=== PATIENT | female | born 1965 | race African-American/Black ===

== ENCOUNTER 2017-11-28 22:20 | Inpatient (IN) | payer OTHER ==
[~2017-11-28] VITALS: Ht 175.3 cm; Wt 72.6 kg
[~2017-11-28 22:20] MED LIST: ATOR20TA PO; FLOR250 PO; NITR100C7 PO
[2017-11-28 22:22] VITALS: BP 115/71
--- NOTE | 2017-11-28 22:22 | NUR ---
PT BIBA TO ER BED 10
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
[2017-11-28] MEDS ORDERED: NACL 0.9% 1,000 ML IV ONE (22:40)
[2017-11-28] MEDS ORDERED: KETOROLAC 30 MG/ML VIAL IVP ONE (22:40)
[2017-11-28 23:19] LABS: APPEARANCE,URINE HAZY (CLEAR); BILIRUBIN,URINE NEGATIVE (NEGATIVE); BLOOD, URINE 3+ (NEGATIVE); COLOR,URINE YELLOW (YELLOW); LEUKOCYTE ESTERASE ,URINE NEGATIVE (NEGATIVE); NITRITE, URINE NEGATIVE (NEGATIVE); UGLUCOSE NEGATIVE (NEGATIVE)
[2017-11-28 23:29] LABS: BARBITURATE, URINE NEG. ng/ml (NEG <=200); BENZODIAZEPINE, URINE NEG. ng/mL (NEG <=200); CANNABINOID, URINE POS. ng/mL (NEG <=50); COCAINE, URINE NEG. ng/mL (NEG <=300); OPIATE, URINE POS. ng/mL (NEG <=2000); PHENCYCLIDINE SCREEN,URINE NEG. ng/mL (NEG <=25)
[2017-11-28 23:39] LABS: BASOPHILS # (AUTO) 0.1 K/uL (0.00-0.22); BASOPHILS % (AUTO) 0.5 % (0.0-2.0); EOSINOPHILS # (AUTO) 0.1 K/uL (0-0.4); EOSINOPHILS % (AUTO) 0.3 % (0.0-4.0); HEMATOCRIT 31.4 % (36-48); HEMOGLOBIN 9.9 g/dL (12.0-16.0); LYMPHOCYTES # (AUTO) 1.2 K/uL (2.5-16.5); LYMPHOCYTES % (AUTO) 7.3 % (20.5-51.1); MEAN CORPUSCULAR HEMOGLOBIN 25 pg (27-31); MEAN CORPUSCULAR HGB CONC 31 g/dL (33-37); MEAN CORPUSCULAR VOLUME 78.4 fL (80-94); MONOCYTES # (AUTO) 1.5 K/uL (0.8-1.0); MONOCYTES % (AUTO) 9.3 % (1.7-9.3); NEUTROPHILS # (AUTO) 13.2 K/uL (1.8-7.7); PLATELET COUNT (AUTO) 445 K/uL (140-450); RED CELL DISTRIBUTION WIDTH 16.6 % (11.6-13.7)
[2017-11-28 23:43] LABS: RBC,URINE 11-20 (MOD) /HPF (0-5); WBC,URINE 0-5 (RARE) /HPF (0-5)
[2017-11-29 00:02] LABS: ALBUMIN 1.8 g/dL (3.4-5.0); CARBON DIOXIDE 31.8 mmol/L (21-32); CREATININE 0.8 mg/dL (0.6-1.3); TOTAL BILIRUBIN 0.5 mg/dL (0.0-1.0)
[2017-11-29 00:03] LABS: ANION GAP 6.1 (8-16)
[2017-11-29 00:04] LABS: POTASSIUM 2.9 mmol/L (3.5-5.1)
[2017-11-29] MEDS ORDERED: POTASSIUM CHLORIDE 20% 40 MEQ/15 ML UDC PO ONE (00:05)
[2017-11-29 00:10] LABS: NEUTROPHILS % (AUTO) 82.6 % (42.2-75.2)
[2017-11-29] MEDS ORDERED: NACL 0.9% 1,000 ML IV ONE (00:10)
[2017-11-29] MEDS ORDERED: PIPERACILLIN/TAZOBACTAM 3.375 GM in DEXTROSE 5% 50 ML IV ONE (00:15)
[2017-11-29] MEDS ORDERED: VANCOMYCIN 1,000 MG in DEXTROSE 5% 250 ML IV ONE (00:15)
[2017-11-29] MEDS ORDERED: PIPERACILLIN/TAZOBACTAM 3.375 GM VIAL IV ONE ×2 (00:26→05:55)
[2017-11-29] MEDS ORDERED: VANCOMYCIN 1,000 MG VIAL ONE (00:26)
[2017-11-29] MEDS ORDERED: DEXTROSE 50% 50 ML SYR IVP PRN (01:50)
[2017-11-29] MEDS ORDERED: ONDANSETRON 4 MG/2 ML VIAL IM/IVP PRN (01:50)
[2017-11-29] MEDS ORDERED: DOCUSATE SODIUM 100 MG GELCAP PO PRN (01:50)
[2017-11-29] MEDS ORDERED: KCL 20 MEQ/WATER INJ PREMIX 100 ML IV SCH (02:30)
--- NOTE | 2017-11-29 03:20 | NUR ---
PT ARRIVED ON UNIT VIA GURNEY ASSISTED BY ER NURSE. PT IN STABLE CONDITION. PT BEING ADMITTED WITH DX OF POSSIBLE SEPSIS. PT IS A/O X3. PT IS DROWSY. PT ON RA. VS ARE STABLE. IV ACCESS IN L AC 20G WITH ORDERED VANCO INFUSING. IV IS PATENT AND INTACT. PT HAS LACERATIONS TO BILATERAL BUTTOCKS. PT HAS SPLINT ON R FOOT. MRSA SWAB DONE. WOUND CULTURES DONE. FALL RISK PRECAUTIONS IN PLACE, WRIST BAND, SOCKS, SIGN ON DOOR AND GOWN. ALLERGY WRISTBAND APPLIED. BED LOCKED, LOW POSITION AND SIDE RAILS UP X2. BOARD UPDATED. WILL CONTINUE TO MONITOR PT.
--- NOTE | 2017-11-29 03:24 | NUR ---
Pt report given to CARINA MAURICIO. Transfer of care at this time.
[2017-11-29 03:56] LABS: PROTHROMBIN TIME 13.9 secs (10.8-13.4)
[2017-11-29 04:00] VITALS: BP 123/77
[2017-11-29 04:05] LABS: FREE T4 (FREE THYROXINE) 1.55 ng/dL (0.76-1.46); MAGNESIUM 2.4 mg/dL (1.8-2.4); PHOSPHORUS 2.9 mg/dL (2.5-4.9); THYROID STIMULATING HORMONE 0.81 uIU/mL (0.34-3.74)
--- NOTE | 2017-11-29 04:13 | NUR ---
LAB CALLED WITH LACTIC ACID VALUE, 2.1, TRENDING DOWNWARD.
[2017-11-29] MEDS ORDERED: PIPERACILLIN/TAZOBACTAM 3.375 GM in DEXTROSE 5% 50 ML IV SCH (05:00)
[2017-11-29] MEDS: BLOOD GLUCOSE MONITORING 1 DEV DEV FS SCH ×4 (05:49→20:23)
--- NOTE | 2017-11-29 05:49 | NUR ---
BS CHECKED, 108. PER MD ORDERS NO COVERAGE NEEDED. WILL CONTINUE TO MONITOR PT.
[2017-11-29] MEDS: NACL 0.9% 1,000 ML IV SCH ×3 (05:55→23:54)
--- NOTE | 2017-11-29 07:10 | NUR ---
PATIENT HAS BEEN SCREENED AND CATEGORIZED HIGH RISK. PATIENT WILL BE SEEN WITHIN 1-2 DAYS OF ADMISSION. 11/30- [address], [facility]
[2017-11-29 07:11] LABS: BASOPHILS % (AUTO) 0.2 % (0.0-2.0); EOSINOPHILS # (AUTO) 0.1 K/uL (0-0.4); EOSINOPHILS % (AUTO) 0.9 % (0.0-4.0); HEMATOCRIT 26.9 % (36-48); HEMOGLOBIN 8.5 g/dL (12.0-16.0); LYMPHOCYTES # (AUTO) 1.2 K/uL (2.5-16.5); LYMPHOCYTES % (AUTO) 8.7 % (20.5-51.1); MEAN CORPUSCULAR HEMOGLOBIN 25 pg (27-31); MEAN CORPUSCULAR HGB CONC 32 g/dL (33-37); MEAN CORPUSCULAR VOLUME 77.7 fL (80-94); MONOCYTES # (AUTO) 1.3 K/uL (0.8-1.0); NEUTROPHILS # (AUTO) 10.7 K/uL (1.8-7.7); NEUTROPHILS % (AUTO) 80.2 % (42.2-75.2); PLATELET COUNT (AUTO) 345 K/uL (140-450); RED BLOOD CELL COUNT(AUTO) 3.45 MIL/uL (4.20-5.40); RED CELL DISTRIBUTION WIDTH 16.5 % (11.6-13.7); WHITE BLOOD COUNT (AUTO) 13.4 K/uL (4.8-10.8)
--- NOTE | 2017-11-29 07:15 | NUR ---
ENDORSED PT TO DAY SHIFT NURSE FOR CONTINUITY OF CARE. PT IN STABLE CONDITION.
--- NOTE | 2017-11-29 07:20 | NUR ---
RECEIVED PT ON BED ASLEEP, AROUSABLE BUT DROWSY, ORIENTED X4. NO SOB NOTED. NO C/O PAIN AT THIS TIME. IV TO LT AC PATENT AND INTACT. CHEST CLEAR DIMINISHED AIR ENTRY TO THE BASES ABDOMEN SOFT, BOWEL SOUNDS PRESENT. NO EDEMA NOTED. SOFT CAST ON RT LOWER EXTREMITY NOTED DRY AND IN PLACE. BED ON LOW POSITION, BED ALARM ON. INSTRUCTED PT TO CALL FOR ASSISTANCE, CALL LIGHT WITHIN REACH, PT VERBALIZED UNDERSTANDING.
[2017-11-29 07:26] LABS: ANION GAP 5.6 (8-16); CARBON DIOXIDE 28.9 mmol/L (21-32); CREATININE 0.6 mg/dL (0.6-1.3); POTASSIUM 3.5 mmol/L (3.5-5.1)
[2017-11-29 07:35] LABS: CHOL/HDL RATIO 3.2 (1-4.5); PHOSPHORUS 2.4 mg/dL (2.5-4.9)
[2017-11-29 08:00] VITALS: BP 143/92
[2017-11-29] MEDS: KETOROLAC 15 MG/ML VIAL IVP PRN ×2 (09:23→16:58)
[2017-11-29] MEDS: LACTOBACILLUS RHAMNOSUS GG 1 EACH CAP PO SCH (09:26)
--- NOTE | 2017-11-29 11:00 | NUR ---
PT HAD BMX1, SOFT, BROWN STOOLS NOTED IN MODERATE AMOUNTS. STOOL SPECIMEN COLLECTED AND SENT TO LAB.
--- NOTE | 2017-11-29 11:33 | NUR ---
ABRASIONS TO BILATERAL BUTTOCKS NOTED, IRREGULAR IN SIZE, MINIMAL SANGUINOUS DRAINAGE NOTED. CLEANSE WITH NORMAL SALINE, PAT DRY AND COVERED WITH COMPOSITE DRESSING. AWAITING FOR WOUND CARE CONSULT. DR. CRUMP NOTIFIED.
[2017-11-29 12:00] VITALS: BP 125/78
--- NOTE | 2017-11-29 12:54 | NUR ---
11/29/17 RD INITIAL ASSESSMENT COMPLETED PLEASE REFER TO NUTRITION ASSESSMENT UNDER CARE ACTIVITY FOR ESTIMATED NEEDS. RECOMMENDATIONS: 1. CCHO DIET TOLERATED. 2. APPRECIATE FOOD PREFERENCES ABLE. 3. RD WILL FOLLOW UP IN 2-3 DAYS; HIGH RISK. JEFFRY MONTANO RD, [facility]
[2017-11-29] MEDS: HYDROcodone/APAP 5/325 MG 1 TAB TAB PO PRN (13:50)
[2017-11-29] MEDS: PIPER/TAZO 3.375GM/D5W PREMIX 50 ML IV SCH ×2 (13:51→20:37)
[2017-11-29] MEDS ORDERED: Z-GUARD PASTE TP SCH (14:00)
--- NOTE | 2017-11-29 14:15 | NUR ---
PT RESTING. NO SOB NOTED. NO COMPLAINTS MADE.
[2017-11-29] MEDS ORDERED: SODIUM PHOS / POTASSIUM PHOS 1 PKT PDR PO SCH (15:30)
[2017-11-29 16:00] VITALS: BP 141/72
--- NOTE | 2017-11-29 16:20 | NUR ---
PT HAD ANOTHER BM, SOFT, BROWN STOOLS NOTED IN MODERATE AMOUNTS.
--- NOTE | 2017-11-29 17:30 | NUR ---
PT AMBULATING IN THE HALLWAY WITH STANDBY ASSIST. ACTIVITY TOLERATED WELL. Addendum: 11/29/17 at 1907 by Cecilia Hutchison RN DISREGARD ABOVE NOTES, WRONG PT.
--- NOTE | 2017-11-29 19:04 | NUR ---
PT TALKING TO GIRLFRIEND AT THE BEDSIDE. NO COMPLAINTS MADE. WILL ENDORSE TO NEXT SHIFT NURSE FOR CONTINUITY OF CARE. Addendum: 11/29/17 at 1907 by Cecilia Hutchison RN DISREGARD ABOVE NOTES, WRONG PT.
--- NOTE | 2017-11-29 19:05 | NUR ---
PT RESTING. NO SOB NOTED. NO SIGNS OF PAIN. WILL ENDORSE TO NEXT SHIFT NURSE FOR CONTINUITY OF CARE.
--- NOTE | 2017-11-29 19:05 | NUR ---
RECEIVED REPORT FROM MAICO MAURICIO DAYSHIFT NURSE AT BEDSIDE, PT IN STABLE CONDITION.
[2017-11-29 20:00] VITALS: BP 136/73
--- NOTE | 2017-11-29 20:00 | NUR ---
PT ASLEEP IN BED, BUT AROUSABLE TO NAME SHE IS AO X 2. PT IV SITE IS A 20 G ON LEFT AC RUNNING N/S AT 90MLS/HR . BED LOW WITH SIDE RAILS UP X 2 ALL FALLS PRECAUTIONS IN PLACE. PT HAS NO S/S OF PAIN OR DISTRESS NOTED.
[2017-11-29] MEDS: ATORVASTATIN 20 MG TAB PO SCH (20:23)
--- NOTE | 2017-11-29 21:30 | NUR ---
PT TURNED AND CHANGED BUT SHE REFUSED TO BE REPOSITIONED ON HER SIDE, PT PREFERS TO LAY DOWN ON HER BACK WITH HOB UP 25%. ZOSYN GIVEN ORDERED NO ADVERSE EFFECTS OF MEDS NOTED.
[2017-11-30] VITALS: BP 128/76
[2017-11-30] MEDS: KETOROLAC 15 MG/ML VIAL IVP PRN ×3 (00:27→17:45)
--- NOTE | 2017-11-30 00:45 | NUR ---
PT C/O GENERAL BODY PAIN 06/28 REQUESTED AND GIVEN TORADOL IVP.
--- NOTE | 2017-11-30 02:00 | NUR ---
PT CHANGED AND TURNED BUT SHE REFUSED TO BE REPOSITIONED OFF HER BUTTOCKS. WOUND CARE PROVIDED NO DRAINAGE OR ODOR NOTED, Z GUARD CREAM APPLIED TO WOUND SITE. NEW IV SITE TO RIGHT WRIST 24 GAUGE PROVIDED DUE TO IV CONSTANTLY BEEPING AND PT UNABLE TO KEEP FROM BENDING HER ARM.
[2017-11-30] MEDS ORDERED: VANCOMYCIN PER PHARMACY MC PRN (02:05)
[2017-11-30] MEDS ORDERED: VANCOMYCIN 1GM/DEXT 5% PREMIX 200 ML IV SCH (03:00)
[2017-11-30] MEDS ORDERED: VANCOMYCIN 1,000 MG VIAL ONE (03:37)
[2017-11-30] MEDS: HYDROcodone/APAP 5/325 MG 1 TAB TAB PO PRN ×4 (03:39→21:47)
--- NOTE | 2017-11-30 03:59 | NUR ---
PT C/O OF 5/10 PAIN IN NECK AND BODY GIVEN NORCO 5/325MG PO/PRN. V/S FOLLOWS T 98.4 P 57 R 20 B/P 133/79 02 98% W R/A. ALL FALLS PRECAUTIONS IN PLACE. WILL MONITOR EFFECT OF PRN MEDICATION.
[2017-11-30 04:00] VITALS: BP 130/80
[2017-11-30] MEDS: BLOOD GLUCOSE MONITORING 1 DEV DEV FS SCH ×4 (05:46→21:45)
[2017-11-30 06:38] LABS: BASOPHILS % (AUTO) 0.3 % (0.0-2.0); EOSINOPHILS # (AUTO) 0.1 K/uL (0-0.4); EOSINOPHILS % (AUTO) 0.9 % (0.0-4.0); HEMATOCRIT 26.6 % (36-48); HEMOGLOBIN 8.6 g/dL (12.0-16.0); LYMPHOCYTES % (AUTO) 7.9 % (20.5-51.1); MEAN CORPUSCULAR HEMOGLOBIN 25 pg (27-31); MEAN CORPUSCULAR HGB CONC 32 g/dL (33-37); MEAN CORPUSCULAR VOLUME 76.8 fL (80-94); MONOCYTES # (AUTO) 0.8 K/uL (0.8-1.0); MONOCYTES % (AUTO) 6.6 % (1.7-9.3); NEUTROPHILS # (AUTO) 10.5 K/uL (1.8-7.7); NEUTROPHILS % (AUTO) 84.3 % (42.2-75.2); PLATELET COUNT (AUTO) 313 K/uL (140-450); RED BLOOD CELL COUNT(AUTO) 3.46 MIL/uL (4.20-5.40); RED CELL DISTRIBUTION WIDTH 16.6 % (11.6-13.7); WHITE BLOOD COUNT (AUTO) 12.5 K/uL (4.8-10.8)
[2017-11-30 07:04] LABS: MAGNESIUM 1.7 mg/dL (1.8-2.4); PHOSPHORUS 1.8 mg/dL (2.5-4.9)
[2017-11-30 07:08] LABS: ANION GAP 5.5 (8-16); CARBON DIOXIDE 29.2 mmol/L (21-32); CREATININE 0.4 mg/dL (0.6-1.3)
[2017-11-30 07:25] LABS: POTASSIUM 2.7 mmol/L (3.5-5.1)
--- NOTE | 2017-11-30 07:30 | NUR ---
RECEIVED PT ON BED ASLEEP, AROUSABLE BUT DROWSY, ORIENTED X4. NO SOB NOTED. NO C/O PAIN AT THIS TIME. IV TO LT AC PATENT AND INTACT. IV TO RT WRIST CAME OFF, CANNULA TIP INTACT, NO BLEEDING NOTED. CHEST CLEAR DIMINISHED AIR ENTRY TO THE BASES ABDOMEN SOFT, BOWEL SOUNDS PRESENT. NO EDEMA NOTED. SOFT CAST ON RT LOWER EXTREMITY NOTED DRY AND IN PLACE. WILL REPOSITION PT EVERY 2 HRS. BED ON LOW POSITION, BED ALARM ON. INSTRUCTED PT TO CALL FOR ASSISTANCE, CALL LIGHT WITHIN REACH, PT VERBALIZED UNDERSTANDING.
--- NOTE | 2017-11-30 07:39 | NUR ---
REPORT GIVEN TO MAICO MAURICIO DAYSHIFT NURSE AT BEDSIDE FOR CONTINUITY OF CARE. PT IN STABLE CONDITION.
[2017-11-30 08:00] VITALS: BP_SYST 116; BP_SYST 152; BP_DIAS 64; BP_DIAS 91
[2017-11-30] MEDS: KCL 20 MEQ/WATER INJ PREMIX 100 ML IV SCH ×2 (08:52→10:42)
--- NOTE | 2017-11-30 10:00 | NUR ---
DR. MUNSON FROM [facility] AT THE BEDSIDE ASSESSING PT'S RIGHT FOOT.
--- NOTE | 2017-11-30 10:30 | NUR ---
POSTERIOR SPLINT PLACED BY DR. MUNSON. PT INSTRUCTED TO REMAIN NON-WEIGHT BEARING ON RLE WITH CRUTCHES, VERBALIZED UNDERSTANDING.
[2017-11-30] MEDS: LACTOBACILLUS RHAMNOSUS GG 1 EACH CAP PO SCH (10:41)
[2017-11-30 12:00] VITALS: BP 152/91
[2017-11-30] MEDS ORDERED: MAGNESIUM OXIDE 400 MG TAB PO SCH (12:00)
[2017-11-30] MEDS: Z-GUARD PASTE TP SCH (13:01)
--- NOTE | 2017-11-30 14:00 | NUR ---
ESTABLISHED A NEW IV LINE ON RT FOREARM WITH GAUGE 22.
[2017-11-30 16:00] VITALS: BP 155/86
[2017-11-30] MEDS: VANCOMYCIN 1,250 MG in NACL 0.9% 250 ML IV SCH (16:18)
--- NOTE | 2017-11-30 17:15 | NUR ---
PT MORE AWAKE AND ALERT NOW. PT SIGNED THE DISCLOSURE OF HEALTH INFORMATION. VERBALIZED UNDERSTANDING. FAXED CONSENT TO [facility]. CONFIRMATION PLACED ON PT'S CHART.
--- NOTE | 2017-11-30 17:19 | NUR ---
FAXED PT'S FACE SHEET TO DR[facility]. CONFIRMATION PLACED ON PT'S CHART. STILL AWAITING FOR PSYCH CONSULT.
--- NOTE | 2017-11-30 18:49 | NUR ---
DR. MENA (PSYCH) HERE TO SEE PT. PT RESTING. NO SOB NOTED. NO SIGNS OF PAIN. WILL ENDORSE TO NEXT SHIFT FOR CONTINUITY OF CARE.
--- NOTE | 2017-11-30 19:10 | NUR ---
RECIEVED ENDORSEMENT AT BEDSIDE FOR CONTINUITY OF CARE FROM MAICO MAURICIO DAYSHIFT NURSE. PT IN STABLE CONDITION. PT IN LOW BED WITH SIDE RAILS UP AND ALL FALLS PRECAUTIONS IN PLACE.
[2017-11-30 20:00] VITALS: BP 145/74
[2017-11-30 20:48] LABS: T4 (THYROXINE) 12.6 ug/dL (4.5-12.0)
[2017-11-30] MEDS: ATORVASTATIN 20 MG TAB PO SCH (21:47)
--- NOTE | 2017-11-30 22:00 | NUR ---
PT TURNED CHANGED AND REPOSITIONED OFF WOUND. WOUND CARE TREATMENT PROVIDED. WOUND IS OPEN NO DRAINAGE OR ODOR NOTED. PT C/O 09/28 PAIN FOR GENERALIZED BODY PAIN, PT GIVEN NORCO PO/PRN AWAITING MEDICATION EFFECT.
[2017-12-01] VITALS: BP 146/92
[2017-12-01] MEDS: KETOROLAC 15 MG/ML VIAL IVP PRN ×3 (00:24→16:12)
--- NOTE | 2017-12-01 00:41 | NUR ---
PT TURNED AND CHANGED AND REPOSITIONED. PT C/O GENERALIZED BODY PAIN 06/28 GIVEN TORADOL PRN AWAITING EFFECT.
[2017-12-01] MEDS: Z-GUARD PASTE TP SCH ×2 (01:00→12:12)
[2017-12-01 04:00] VITALS: BP 124/83
[2017-12-01] MEDS: VANCOMYCIN 1,250 MG in NACL 0.9% 250 ML IV SCH (04:12)
--- NOTE | 2017-12-01 04:19 | NUR ---
PT ASLEEP IN BED PT HAS NO S/S OF PAIN OR DISTRESS NOTED RESP EVEN AND UNLABORED IV SITE INTACT AND VANCO RUNNING ORDERED NO ADVERSE EFFECTS OF MEDS NOTED.
--- NOTE | 2017-12-01 05:32 | NUR ---
PT TURNED, CHANGED AND REPOSITIONED. PT C/O 5/10 PAIN FOR GENERAL BODY PAIN GIVEN NORCO PO/PRN WILL MONITOR EFFECT.
[2017-12-01] MEDS: HYDROcodone/APAP 5/325 MG 1 TAB TAB PO PRN ×3 (05:43→21:47)
[2017-12-01 06:11] LABS: BASOPHILS # (AUTO) 0.1 K/uL (0.00-0.22); BASOPHILS % (AUTO) 0.7 % (0.0-2.0); EOSINOPHILS # (AUTO) 0.1 K/uL (0-0.4); EOSINOPHILS % (AUTO) 1.3 % (0.0-4.0); HEMATOCRIT 30.7 % (36-48); HEMOGLOBIN 9.8 g/dL (12.0-16.0); LYMPHOCYTES # (AUTO) 1.1 K/uL (2.5-16.5); LYMPHOCYTES % (AUTO) 10.5 % (20.5-51.1); MEAN CORPUSCULAR HEMOGLOBIN 25 pg (27-31); MEAN CORPUSCULAR HGB CONC 32 g/dL (33-37); MEAN CORPUSCULAR VOLUME 77.4 fL (80-94); MONOCYTES # (AUTO) 0.6 K/uL (0.8-1.0); MONOCYTES % (AUTO) 6.4 % (1.7-9.3); NEUTROPHILS # (AUTO) 8.1 K/uL (1.8-7.7); NEUTROPHILS % (AUTO) 81.1 % (42.2-75.2); PLATELET COUNT (AUTO) 360 K/uL (140-450); RED BLOOD CELL COUNT(AUTO) 3.97 MIL/uL (4.20-5.40); RED CELL DISTRIBUTION WIDTH 16.1 % (11.6-13.7)
[2017-12-01] MEDS: BLOOD GLUCOSE MONITORING 1 DEV DEV FS SCH ×4 (06:23→21:31)
--- NOTE | 2017-12-01 06:27 | NUR ---
LAST LAB DRAW REVEALS A POTASSIUM OF 2.7, WHICH IS TRENDING UPWARD, TRIED TO REACH DR. SALOMON VIA PHONE AND COULD NOT GET THROUGH WILL ENDORSE TO NEXT SHIFT TO FOLLOW UP
[2017-12-01 06:31] LABS: MAGNESIUM 1.8 mg/dL (1.8-2.4); PHOSPHORUS 1.9 mg/dL (2.5-4.9)
--- NOTE | 2017-12-01 07:24 | NUR ---
PT IS SLEEPING. UPDATED THE BOARD. PER REBAR BENDER NURSE, PT IS BEDBOUND, INCONTINENT. R LEG HAS A SPLINT AND WRAPPED IN CHEMA CLING WRAP. PER REBAR BENDER NURSE PT HAS 2 ABRASIONS ON HER BOTTOM. ZGUARD IS BEING USED. LAST BM WAS EARLY TODAY. IV ON R FA 20G NS AT TKO. WILL CONTINUE TO ASSES PT.
--- NOTE | 2017-12-01 07:37 | NUR ---
REPORT GIVEN AT BEDSIDE TO RELIEVING RN PT IN STABLE CONDITION.
[2017-12-01 08:00] VITALS: BP 133/83
[2017-12-01] MEDS: LACTOBACILLUS RHAMNOSUS GG 1 EACH CAP PO SCH (08:05)
--- NOTE | 2017-12-01 08:15 | NUR ---
ADMINISTERED MORNING MEDS, INCLUDING TORADOL. PT C/O PAIN IN HER NECK. 11/28. PT TOLERATED WELL. ATE 100/[address] MENA IS HERE TO ASSESS PT. PT IS DIAPHORETIC, POSSIBLE WITHDRAWAL. PT REQUESTS HER HEAD OF BEAD BE DOWN AND LIGHTS OUT. WILL CONTINUE TO MONITOR PT.
[2017-12-01 08:20] LABS: ANION GAP 12.7 (8-16); CARBON DIOXIDE 26.8 mmol/L (21-32); CREATININE 0.7 mg/dL (0.6-1.3); POTASSIUM 3.5 mmol/L (3.5-5.1)
--- NOTE | 2017-12-01 10:04 | NUR ---
FAXED ADMIT ORDER,, ER REPORT, H&P, CONSULT AND PROGRESS NOTES AND MED SHEETS TO MARIA DE JESUS [phone] PHONE [phone] ROBLES Huizar [phone] INITIAL REVIEW
--- NOTE | 2017-12-01 10:11 | NUR ---
PT IS SLEEPING SOUNDLY. NO SIGNS OF DISTRESS. WOUND CARE NURSE IS HERE. WILL CONTINUE TO MONITOR PT.
--- NOTE | 2017-12-01 10:15 | NUR ---
FAXED INITIAL REVIEW TO NAMITA [phone] PHONE RICK AT [phone]
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
[2017-12-01] MEDS: NACL 0.9% 1,000 ML IV SCH ×2 (10:41→23:34)
[2017-12-01 12:00] VITALS: BP 150/86
--- NOTE | 2017-12-01 13:10 | NUR ---
ADMINISTERED ROCEPHIN IVPB AND GAVE NORCO. NOT TIME FOR TORADOL OF YET. PT TOLERATED WELL. WILL CONTINUE TO MONITOR PT.
[2017-12-01] MEDS ORDERED: SODIUM PHOS / POTASSIUM PHOS 1 PKT PDR PO SCH (13:30)
--- NOTE | 2017-12-01 14:25 | NUR ---
ATTEMPTED TO GIVE PHOS TO PT. PT REFUSED MED. WANTS TO BE LEFT ALONE.
[2017-12-01] MEDS ORDERED: ASCORBIC ACID 500 MG TAB PO SCH (15:15)
--- NOTE | 2017-12-01 15:54 | NUR ---
PT IS SLEEPING SOUNDLY. NO SIGNS OF DISTRESS. WILL CONTINUE TO MONITOR PT.
[2017-12-01 16:00] VITALS: BP 129/75
[2017-12-01] MEDS: FERROUS SULFATE 325 MG TABEC PO SCH (16:11)
[2017-12-01] MEDS: VANCOMYCIN 1GM/DEXT 5% PREMIX 200 ML IV SCH (16:31)
--- NOTE | 2017-12-01 19:15 | NUR ---
ENDORSED PT TO THE FOREMAN/PILE DRIVING AND ERECTION NURSE AT BEDSIDE FOR CONTINUITY OF CARE. PT IS IN STABLE CONDITION.
[2017-12-01 20:00] VITALS: BP 141/86
--- NOTE | 2017-12-01 20:30 | NUR ---
D/T ASSIGNMENT CHANGE, RECEIVED REPORT AT BEDSIDE FROM CLIENT SERVICES REPRESENTATIVE NURSE. PT IN STABLE CONDITION. PT IS A/O X3. PT IS ON RA. PT HAS IV ACCESS IN L AC 20G, SALINE LOCKED AND R FA 20G WITH IVF RUNNING PER MD ORDERS. IVS PATENT AND INTACT. PT HAS BILATERAL BUTTOCK ABRASIONS. PT HAS NO C/O PAIN AT THIS TIME. BED LOCKED, LOW POSITION WITH SIDE RAILS UP X2. CALL LIGHT IS WITHIN REACH. WILL CONTINUE TO MONITOR PT.
--- NOTE | 2017-12-01 21:31 | NUR ---
BS CHECKED, 145. NO INSULIN COVERAGE NEEDED PER MD ORDERS. WILL CONTINUE TO MONITOR PT.
[2017-12-01] MEDS: ATORVASTATIN 20 MG TAB PO SCH (21:36)
--- NOTE | 2017-12-01 21:47 | NUR ---
PT C/O OF GENERALIZED PAIN. PAIN MEDICATION GIVEN. WILL CONTINUE TO MONITOR PT.
--- NOTE | 2017-12-01 22:47 | NUR ---
PT ASLEEP IN BED. NO S/SX OF DISTRESS. WILL CONTINUE TO MONITOR.
--- NOTE | 2017-12-02 | NUR ---
PT IS REFUSING TO HAVE VS CHECKED. WILL CONTINUE TO MONITOR.
[2017-12-02] MEDS: VANCOMYCIN 1GM/DEXT 5% PREMIX 200 ML IV SCH ×3 (01:19→16:56)
[2017-12-02] MEDS: Z-GUARD PASTE TP SCH ×2 (01:20→12:21)
[2017-12-02] MEDS: KETOROLAC 15 MG/ML VIAL IVP PRN ×4 (01:42→23:40)
--- NOTE | 2017-12-02 01:42 | NUR ---
PT C/O PAIN. PAIN MEDICATION GIVEN. WILL CONTINUE TO MONITOR.
--- NOTE | 2017-12-02 02:43 | NUR ---
PT ASLEEP IN BED. NO S/SX OF DISTRESS. WILL CONTINUE TO MONITOR.
--- NOTE | 2017-12-02 03:00 | NUR ---
PT WET, REFUSING TO LET MONUMENT MASON AND MYSELF CHANGE HER. WILL CONTINUE TO MONITOR.
[2017-12-02 04:00] VITALS: BP 144/90
--- NOTE | 2017-12-02 04:45 | NUR ---
PT AGREED TO LET TRIBAL DELEGATE AND MYSELF CLEAN AND CHANGE HER. PT TOLERATED WELL. WILL CONTINUE TO MONITOR.
[2017-12-02] MEDS: BLOOD GLUCOSE MONITORING 1 DEV DEV FS SCH ×4 (06:06→20:22)
[2017-12-02] MEDS: INSULIN LISPRO SLIDING SCALE 100 UNITS/ML VIAL SUBQ PRN ×2 (06:09→17:07)
--- NOTE | 2017-12-02 06:09 | NUR ---
BS CHECKED, 163. INSULIN COVERAGE GIVEN PER MD ORDERS.
[2017-12-02 06:20] LABS: FOLIC ACID 7.3 ng/mL (>3.0)
[2017-12-02 06:27] LABS: BASOPHILS % (AUTO) 0.3 % (0.0-2.0); EOSINOPHILS # (AUTO) 0.1 K/uL (0-0.4); HEMATOCRIT 32.6 % (36-48); HEMOGLOBIN 10.3 g/dL (12.0-16.0); LYMPHOCYTES # (AUTO) 1.3 K/uL (2.5-16.5); LYMPHOCYTES % (AUTO) 11.1 % (20.5-51.1); MEAN CORPUSCULAR HEMOGLOBIN 25 pg (27-31); MEAN CORPUSCULAR HGB CONC 32 g/dL (33-37); MEAN CORPUSCULAR VOLUME 77.3 fL (80-94); MONOCYTES # (AUTO) 0.8 K/uL (0.8-1.0); MONOCYTES % (AUTO) 7.2 % (1.7-9.3); NEUTROPHILS # (AUTO) 9.3 K/uL (1.8-7.7); NEUTROPHILS % (AUTO) 80.4 % (42.2-75.2); PLATELET COUNT (AUTO) 443 K/uL (140-450); RED BLOOD CELL COUNT(AUTO) 4.22 MIL/uL (4.20-5.40); RED CELL DISTRIBUTION WIDTH 16.1 % (11.6-13.7); WHITE BLOOD COUNT (AUTO) 11.5 K/uL (4.8-10.8)
[2017-12-02 06:52] LABS: ANION GAP 8.9 (8-16); CARBON DIOXIDE 29.3 mmol/L (21-32); CREATININE 0.6 mg/dL (0.6-1.3); POTASSIUM 3.2 mmol/L (3.5-5.1)
[2017-12-02] MEDS: NACL 0.9% 1,000 ML IV SCH ×2 (06:54→16:56)
[2017-12-02 06:56] LABS: MAGNESIUM 1.8 mg/dL (1.8-2.4); PHOSPHORUS 2.5 mg/dL (2.5-4.9)
--- NOTE | 2017-12-02 07:10 | NUR ---
ENDORSED PT TO DAY SHIFT NURSE FOR CONTINUITY OF CARE. PT IN STABLE CONDITION.
--- NOTE | 2017-12-02 07:11 | NUR ---
RECEIVED REPORT FROM THE DANCE HALL HOST/HOSTESS NURSE AT BEDSIDE FOR CONTINUITY OF CARE. PT IS AWAKE AND ORIENTED. INTRODUCED MYSELF AND UPDATED THE BOARD. PT IS STILL DIAPHORETIC. STILL IN WITHDRAWAL. V/S WITHIN NORMAL RANGE. C/O PAIN. WANTS TORADOL. WILL ADMINISTER WITH MORNING MEDS. PT HAS R FA 20G NS AT 90ML INFUSING. WILL TRY CHANGE HER OFTEN AND KEEP WOUND CLEAN AND DRY. WILL CONTINUE TO MONITOR PT.
[2017-12-02 08:00] VITALS: BP 128/76
[2017-12-02] MEDS: FERROUS SULFATE 325 MG TABEC PO SCH ×2 (08:11→16:57)
[2017-12-02] MEDS: LACTOBACILLUS RHAMNOSUS GG 1 EACH CAP PO SCH (08:11)
[2017-12-02] MEDS: ASCORBIC ACID 500 MG TAB PO SCH (08:12)
--- NOTE | 2017-12-02 08:19 | NUR ---
ADMINISTERED ALL SCHEDULED MEDS, INCLUDING TORADOL FOR PAIN. PT STATES PAIN IS AT 8/10 BUT REQUESTS TORADOL. PT TOLERATED WELL. CHU INFUSING. WILL CONTINUE TO MONITOR PT.
--- NOTE | 2017-12-02 10:10 | NUR ---
PER PRODUCE FIELD MERCHANDISER, PT REFUSES TO BE TURNED. PT LIKES TO LIE ON HER BACK. NOT OFFLOADING PRESSURE ON HER BOTTOM.
--- NOTE | 2017-12-02 10:25 | NUR ---
CM NOTE FAXED CONCURRENT REVIEW AND PROGRESS NOTE TO MARIA DE JESUS [phone] # [phone] ROBLES EXT [phone] AND TO NAMITA [phone] PHONE RICK AT [phone]
[2017-12-02 12:00] VITALS: BP 139/73
[2017-12-02] MEDS: HYDROcodone/APAP 5/325 MG 1 TAB TAB PO PRN ×2 (12:49→20:27)
--- NOTE | 2017-12-02 14:20 | NUR ---
PT SLEEPING SOUNDLY. NO SIGNS OF DISTRESS. WILL CONTINUE TO MONITOR PT.
--- NOTE | 2017-12-02 14:28 | NUR ---
12/02/17 RD FOLLOW UP COMPLETED PLEASE REFER TO NUTRITION PROGRESS NOTE UNDER CARE ACTIVITY FOR ESTIMATED NUTRITIONAL NEEDS. 1. CONTINUE CCHO 60 GM DIET TOLERATED 2. RD TO FOLLOW-UP 5-7 DAYS, LOW RISK JETHRO MARKHAM RD
[2017-12-02 16:00] VITALS: BP 138/82
--- NOTE | 2017-12-02 16:58 | NUR ---
ADMINISTERED TORADOL, VANCO, AND IRON. PT TOLERATED WELL. WILL CONTINUE TO MONITOR PT.
[2017-12-02] MEDS ORDERED: POTASSIUM CHLORIDE 10 MEQ TABER PO SCH (17:05)
--- NOTE | 2017-12-02 17:13 | NUR ---
ADMINISTERED K DUR AND INSULIN COVERAGE. PT TOLERATED WELL. WILL CONTINUE TO MONITOR PT.
--- NOTE | 2017-12-02 19:11 | NUR ---
ENDORSED PT TO THE CHART CHANGER NURSE AT BEDSIDE FOR CONTINUITY OF CARE. PT IS IN STABLE CONDITION.
--- NOTE | 2017-12-02 19:11 | NUR ---
RECEIVED PT REPORT AT PT BEDSIDE FROM DAY SHIFT NURSE. PT IN STABLE CONDITION. PT IS A/OX4. PT IS DROWSY BUT EASILY AROUSABLE. PT HAS NO TEMP BUT SKIN IS CLAMMY. PT IS ON RA. IV ACCESS IN R FA 22G WITH IVF RUNNING PER MD ORDERS. IV IS PATENT AND INTACT. PT HAS BILATERAL BUTTOCK AND PERIANAL IAD MORE. PT IS C/O OF NECK AND BODY PAIN. BED IS LOCKED, LOW POSITION AND SIDE RAILS UP X2. BOARD UPDATED. CALL LIGHT WITHIN REACH. WILL CONTINUE TO MONITOR PT.
[2017-12-02 20:00] VITALS: BP 133/84
--- NOTE | 2017-12-02 20:00 | NUR ---
PT SISTER AT BEDSIDE. MADE SISTER AWARE OF VISITING HOURS. EDUCATED SISTER ON CONTACT PRECAUTION AND USE OF PPE AND IMPORTANCE OF HANDWASHING.
--- NOTE | 2017-12-02 20:22 | NUR ---
BS CHECKED, 129. NO INSULIN COVERAGE NEEDED PER MD ORDERS. WILL CONTINUE TO MONITOR PT.
--- NOTE | 2017-12-02 20:27 | NUR ---
PT C/O OF PAIN. NORCO GIVEN. PT TOLERATED WELL. WILL CONTINUE TO MONITOR.
[2017-12-02] MEDS: ATORVASTATIN 20 MG TAB PO SCH (20:28)
--- NOTE | 2017-12-02 20:30 | NUR ---
STATISTICS TEACHER AND MYSELF WANTING TO CHANGE AND CLEAN PT BUT PT IS REFUSING AT THIS TIME. WILL TRY AGAIN SHORTLY AND CONTINUE TO MONITOR PT.
--- NOTE | 2017-12-02 21:22 | NUR ---
PT IS STILL REFUSING TO BE CLEANED AND CHANGED. PT STATING "I AM COMFORTABLE. DO NOT TOUCH ME." WILL TRY AGAIN SHORTLY. PT HAS NO S/SX OF DISTRESS. WILL CONTINUE TO MONITOR.
--- NOTE | 2017-12-02 22:44 | NUR ---
ASKED PT IF SHE WOULD LIKE TO BE CHANGED AND SHE REFUSED. PT GOWN, BED AND PILLOWS ARE VISIBLY WET. PT DENIES THAT SHE IS WET AND DOES NOT WANT TO BE CHANGED. REEDUCATED PT THAT BEING WET WILL NOT HELP WITH THE HEALING OF HER WOUNDS BUT PT STATED SHE DOES NOT CARE.
--- NOTE | 2017-12-02 23:40 | NUR ---
PT C/O PAIN. TORADOL GIVEN. WILL CONTINUE TO MONITOR.
--- NOTE | 2017-12-02 23:53 | NUR ---
PT AGREED TO BE CLEANED CHANGED AND TURNED. PT TOLERATED WELL. WILL CONTINUE TO MONITOR.
[2017-12-03] VITALS: BP 131/78
[2017-12-03] MEDS: VANCOMYCIN 1GM/DEXT 5% PREMIX 200 ML IV SCH (01:00)
--- NOTE | 2017-12-03 01:39 | NUR ---
LAB CALLED WITH CHU VALDIVIA, 21.1. SPOKE WITH PHARMACY, TOLD TO HOLD 0100 DOSE OF VANCOMYCIN.
[2017-12-03] MEDS: Z-GUARD PASTE TP SCH ×2 (01:45→13:01)
--- NOTE | 2017-12-03 03:11 | NUR ---
PT SLEEPING IN BED. NO SIGNS OF DISTRESS. WILL CONTINUE TO MONITOR PT.
--- NOTE | 2017-12-03 04:00 | NUR ---
PT REFUSING TO HAVE VS CHECKED. WILL CONTINUE TO MONITOR PT.
--- NOTE | 2017-12-03 05:11 | NUR ---
ASSISTED AIR MOVING TECHNICIAN IN CLEANING, CHANGING AND REPOSITIONING THE PT. PT TOLERATED WELL. WILL CONTINUE TO MONITOR.
[2017-12-03] MEDS: NACL 0.9% 1,000 ML IV SCH ×2 (05:20→16:15)
[2017-12-03] MEDS: BLOOD GLUCOSE MONITORING 1 DEV DEV FS SCH ×4 (05:32→21:00)
--- NOTE | 2017-12-03 05:33 | NUR ---
BS CHECKED, 129. NO INSULIN COVERAGE NEEDED PER MD ORDERS.
[2017-12-03] MEDS: HYDROcodone/APAP 5/325 MG 1 TAB TAB PO PRN ×2 (05:42→13:05)
--- NOTE | 2017-12-03 05:42 | NUR ---
PT C/O PAIN. NORCO GIVEN. WILL CONTINUE TO MONITOR PT.
[2017-12-03 06:58] LABS: BASOPHILS % (AUTO) 0.4 % (0.0-2.0); EOSINOPHILS # (AUTO) 0.2 K/uL (0-0.4); EOSINOPHILS % (AUTO) 1.2 % (0.0-4.0); HEMATOCRIT 33.5 % (36-48); HEMOGLOBIN 10.6 g/dL (12.0-16.0); LYMPHOCYTES # (AUTO) 1.2 K/uL (2.5-16.5); LYMPHOCYTES % (AUTO) 9.3 % (20.5-51.1); MEAN CORPUSCULAR HEMOGLOBIN 25 pg (27-31); MEAN CORPUSCULAR HGB CONC 32 g/dL (33-37); MEAN CORPUSCULAR VOLUME 78.6 fL (80-94); MONOCYTES # (AUTO) 0.8 K/uL (0.8-1.0); MONOCYTES % (AUTO) 6.5 % (1.7-9.3); NEUTROPHILS # (AUTO) 10.6 K/uL (1.8-7.7); NEUTROPHILS % (AUTO) 82.6 % (42.2-75.2); PLATELET COUNT (AUTO) 446 K/uL (140-450); RED BLOOD CELL COUNT(AUTO) 4.26 MIL/uL (4.20-5.40); RED CELL DISTRIBUTION WIDTH 16.4 % (11.6-13.7); WHITE BLOOD COUNT (AUTO) 12.9 K/uL (4.8-10.8)
[2017-12-03 07:12] LABS: CARBON DIOXIDE 26.3 mmol/L (21-32); CREATININE 0.6 mg/dL (0.6-1.3); POTASSIUM 3.3 mmol/L (3.5-5.1)
--- NOTE | 2017-12-03 07:20 | NUR ---
RECEIVED PATIENT REPORT AT BEDSIDE. PATIENT ASLEEP BUT AROUSABLE. NO S/S OF DISTRESS. PATIENT ON ROOM AIR. SPLINT NOTED TO THE RIGHT LEG. DRESSING CLEAN DRY AND INTACT. PATIENT ON TELE MONITORING. BED LOWERED WITH CALL LIGHT WITHIN REACH. WILL CONTINUE TO MONITOR
--- NOTE | 2017-12-03 07:20 | NUR ---
ENDORSED PT TO DAY SHIFT NURSE FOR CONTINUITY OF CARE. PT IN STABLE CONDITION.
[2017-12-03 07:25] LABS: MAGNESIUM 1.9 mg/dL (1.8-2.4); PHOSPHORUS 2.6 mg/dL (2.5-4.9)
[2017-12-03 08:00] VITALS: BP 140/81
[2017-12-03] MEDS: KETOROLAC 15 MG/ML VIAL IVP PRN ×2 (08:46→16:15)
[2017-12-03] MEDS: LACTOBACILLUS RHAMNOSUS GG 1 EACH CAP PO SCH (08:50)
[2017-12-03] MEDS: FERROUS SULFATE 325 MG TABEC PO SCH ×2 (08:50→16:15)
[2017-12-03] MEDS: ASCORBIC ACID 500 MG TAB PO SCH (08:50)
--- NOTE | 2017-12-03 10:18 | NUR ---
CM NOTE FAXED CONCURRENT REVIEW AND PROGRESS NOTE TO MARIA DE JESUS [phone] PH# [phone] ROBLES EXT [phone] AND TO NAMITA [phone] RAMSES CABRERA AT [phone] Addendum: 12/03/17 at 1027 by Sophia Farr CM ORDER FOR [facility] FAXED TO MARIA DE JESUS [phone] PH# [phone] ROBLES EXT [phone] AND TO NAMITA [phone] PH# RICK AT [phone] Addendum: 12/03/17 at 1037 by Sophia Farr CM MARIA DE JESUS ARBOLEDA # [phone] EXT [phone] AWARE OF ORDER FOR SNF
--- NOTE | 2017-12-03 10:45 | NUR ---
PATIENT GIVEN BED BATH WITH THE HELP OF THE WELDER AND FITTER. Z GUARD APPLIED TO IAD TO THE BUTTOCKS. LOWER EXTREMITIES ELEVATED. PATIENT TURNED AND REPOSITIONED COMFORT. PATIENT TOLERATED WELL
--- NOTE | 2017-12-03 11:00 | NUR ---
Meat Dresser Notes: I faxed Patient's Clinical information and MD orders for short-term placement for wound care, IV antibiotics, and Physical Therapy to [facility] , [facility] , [facility] , [facility] .
--- NOTE | 2017-12-03 12:00 | NUR ---
machine operator hop worker Notes: Trinity from admissions at [facility] called me stating that she is interested on accepting Patient However; [facility] is not contracted with their SNF. Per Trinity If Insurance will provide and approved a [facility] be able to take Patient.
[2017-12-03] MEDS ORDERED: VANCOMYCIN 1,250 MG in NACL 0.9% 250 ML IV SCH (13:00)
[2017-12-03] MEDS: PIPER/TAZO 3.375GM/D5W PREMIX 50 ML IV SCH ×3 (13:24→23:29)
--- NOTE | 2017-12-03 13:30 | NUR ---
PATIENT SEEN BY DR MENA. PATIENT'S MOM PRESENT AT BEDSIDE. DR DISCUSSED PLAN OF CARE AND PAIN MANAGEMENT FOR THE PATIENT
[2017-12-03] MEDS: INSULIN LISPRO SLIDING SCALE 100 UNITS/ML VIAL SUBQ PRN (13:33)
[2017-12-03] MEDS: MORPHINE SULFATE 2 MG/ML SYR IVP PRN ×3 (13:56→23:29)
[2017-12-03] MEDS: VANCOMYCIN 1,500 MG in NACL 0.9% 500 ML IV SCH (15:16)
--- NOTE | 2017-12-03 15:23 | NUR ---
CM NOTE RECEIVED CALL FROM MARIA DE JESUS ARBOLEDA # [phone] EXT [phone] WHO SAID SHE HAS REVIEWED PATIENT'S CASE WITH HER INDUSTRIAL ROOFER HELPER AND THEIR BENEFITS DEPT. PER MARIA DE JESUS ARBOLEDA, PATIENT IS AN ID MEMBER ASSIGNED TO [facility] FOR HER MEDICAL AND HER TWO PREVIOUS ADMISSIONS WERE FROM [facility] THEREFORE PATIENT HAS TO BE PLACED IN A SNF IN [place] UNDER CONTRACTED LIST OF [facility]. CALLED [facility]# [phone] SEVERAL TIMES BUT CALL WAS NOT PICKED UP AND WON'T LET TO LEAVE A MESSAGE. SPOKE WITH MANUELA OF [facility]# [phone] AND SHE SAID SHE WOULD HAVE THE ASSIGNED CM CALL BACK.
--- NOTE | 2017-12-03 15:44 | NUR ---
PATIENT ASLEEP IN BED. NO S/S OF DISTRESS NOTED
--- NOTE | 2017-12-03 19:22 | NUR ---
PATIENT REPORT GIVEN AT BEDSIDE. PATIENT ENDORSED IN STABLE CONDITION
--- NOTE | 2017-12-03 19:23 | NUR ---
RECEIVED REPORT FROM DAYSHIFT NURSE AT BEDSIDE FOR CONTINUITY OF CARE. PT AAOX2. IV 22 RAC NS 100ML/HR. NO SOB NO S/S OF DISTRESS ON RA. PT IS CONTACT PRECAUTIONS. PT IS BEDBOUND AND STATES SHE IS UNABLE TO FEED HERSELF. BED LOWERED CALL LIGHT WITHIN REACH WILL CONTINUE TO MONITOR.
[2017-12-03 20:00] VITALS: BP 132/74
[2017-12-03] MEDS: ATORVASTATIN 20 MG TAB PO SCH (20:30)
--- NOTE | 2017-12-03 21:29 | NUR ---
PT STATES SHE IS STILL IN PAIN AND REQUEST FOR MORE PAIN MED. WILL CONTINUE TO MONITOR.
--- NOTE | 2017-12-04 00:29 | NUR ---
ADMIN PAIN MEDICATION 1HR AGO. PT IS SLEEPING. PAIN MED EFFECTIVE WILL CONTINUE TO MONITOR.
--- NOTE | 2017-12-04 00:56 | NUR ---
CALLED PHARMACY BECAUSE VANCOMYCIN 1,500 MED WAS DUE. BUT LABEL STATED TO HOLD IF VANCO ABOVE 20. TROUGH TODAY WAS 21.1. PHARMACY STATED TO HOLD MED UNTIL THE AM. WILL CONTINUE TO MONITOR.
[2017-12-04] MEDS: VANCOMYCIN 1,500 MG in NACL 0.9% 500 ML IV SCH ×3 (00:58→21:10)
[2017-12-04] MEDS: Z-GUARD PASTE TP SCH ×2 (01:48→13:08)
[2017-12-04] MEDS: NACL 0.9% 1,000 ML IV SCH ×2 (02:14→16:17)
[2017-12-04] MEDS: MORPHINE SULFATE 2 MG/ML SYR IVP PRN ×5 (03:30→21:20)
--- NOTE | 2017-12-04 04:25 | NUR ---
ADMIN PAIN MEDICATION 1HR AGO. PT IS SLEEPING. PAIN MED EFFECTIVE WILL CONTINUE TO MONITOR
--- NOTE | 2017-12-04 04:44 | NUR ---
PT IS CURRENTLY SLEEPING NO SOB NO S/S OF DISTRESS. WILL CONTINUE TO MONITOR.
[2017-12-04] MEDS: PIPER/TAZO 3.375GM/D5W PREMIX 50 ML IV SCH ×3 (05:42→17:28)
[2017-12-04] MEDS: BLOOD GLUCOSE MONITORING 1 DEV DEV FS SCH ×4 (05:46→20:56)
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
[2017-12-04 07:17] LABS: BASOPHILS # (AUTO) 0.1 K/uL (0.00-0.22); BASOPHILS % (AUTO) 0.6 % (0.0-2.0); EOSINOPHILS # (AUTO) 0.2 K/uL (0-0.4); EOSINOPHILS % (AUTO) 1.3 % (0.0-4.0); HEMATOCRIT 31.6 % (36-48); HEMOGLOBIN 9.9 g/dL (12.0-16.0); LYMPHOCYTES # (AUTO) 1.3 K/uL (2.5-16.5); LYMPHOCYTES % (AUTO) 10.1 % (20.5-51.1); MEAN CORPUSCULAR HEMOGLOBIN 25 pg (27-31); MEAN CORPUSCULAR HGB CONC 31 g/dL (33-37); MEAN CORPUSCULAR VOLUME 78.4 fL (80-94); MONOCYTES # (AUTO) 0.9 K/uL (0.8-1.0); MONOCYTES % (AUTO) 6.9 % (1.7-9.3); NEUTROPHILS # (AUTO) 10.2 K/uL (1.8-7.7); NEUTROPHILS % (AUTO) 81.1 % (42.2-75.2); PLATELET COUNT (AUTO) 414 K/uL (140-450); RED BLOOD CELL COUNT(AUTO) 4.03 MIL/uL (4.20-5.40); RED CELL DISTRIBUTION WIDTH 16.9 % (11.6-13.7); WHITE BLOOD COUNT (AUTO) 12.6 K/uL (4.8-10.8)
[2017-12-04 07:18] LABS: CARBON DIOXIDE 27.4 mmol/L (21-32); CREATININE 0.6 mg/dL (0.6-1.3); POTASSIUM 3.4 mmol/L (3.5-5.1)
--- NOTE | 2017-12-04 07:20 | NUR ---
ENDORSED REPORT TO DAYSHIFT NURSE AT BEDSIDE FOR CONTINUITY OF CARE.
[2017-12-04 07:23] LABS: MAGNESIUM 1.8 mg/dL (1.8-2.4); PHOSPHORUS 2.5 mg/dL (2.5-4.9)
[2017-12-04 08:00] VITALS: BP 123/71
--- NOTE | 2017-12-04 08:30 | NUR ---
ASSISTED PATIENT WITH BREAKFAST. PATIENT CONSUMED 100 PERCENT OF HER MEAL
[2017-12-04] MEDS: LACTOBACILLUS RHAMNOSUS GG 1 EACH CAP PO SCH (08:34)
[2017-12-04] MEDS: FERROUS SULFATE 325 MG TABEC PO SCH ×2 (08:34→16:17)
[2017-12-04] MEDS: ASCORBIC ACID 500 MG TAB PO SCH (08:34)
--- NOTE | 2017-12-04 10:00 | NUR ---
Director Digital Sales Notes Late Entry: Jin Herman From [facility] call me in response to recent SNF inquire I faxed stating that they have no beds available at this time.
--- NOTE | 2017-12-04 10:30 | NUR ---
PATIENT GIVEN BED BATH. Z GUARD APPLIED TO IAD TO THE BUTTOCKS. PATIENT REPOSITIONED FOR COMFORT
--- NOTE | 2017-12-04 10:31 | NUR ---
RECEIVED A MESSAGE FROM RICK FROM [facility]. HE STATED THAT FOR SNF, THEY ARE NOT DELEGATED AND TO CALL [facility]. I CALLED [facility] AND SPOKE WITH ROBLES [phone] . SHE SAID [facility] IS RESPONSIBLE FOR SNF, BUT THE PROFESSIONAL IS [facility]. I CALLED [facility] AND SPOKE WITH CORY. SHE SAID THEY ARE NOT DELEGATED FOR THIS PAITNE. I CALLED [facility] AND LEFT A MESSAGE WITH ROBL[facility] I INFORMED HER WHAT WAS TOLD TO ME BY CORY. AT [facility].
--- NOTE | 2017-12-04 12:30 | NUR ---
ASSISTED PATIENT WITH LUNCH. PATIENT ATE 100 PERCENT OF HER MEAL
--- NOTE | 2017-12-04 14:44 | NUR ---
SPOKE WITH ROBLES AND SHE SAID SHE WOULD SPEAK WITH HER INPATIENT NURSING AIDE ABOUT WHETHER WE CAN USE [place]. SHE ALSO SAID SHE SPOKE WITH RICK AT [facility] AND HE SAID THEY ARE RESPONSIBLE FOR THE PROFESSIONAL PART OF THE SNF. I RECEIVED A CALL BACK FROM CONTRERAS FROM [facility]. SHE SAID THAT ROBLES SAID THAT HER INPATIENT NURSING AIDE SAID THAT S[facility]CE [facility], THAT SHE WOULD HAVE TO GO BACK FOR SNF IN [facility]. [facility] WOULD GIVE AUTH FOR SNF. LIST OF CONTRACTED SNF'S IN [facility], [facility] , [facility], [facility], [facility], [place] AND [facility]. I GAVE ADRIÁN HAND SEWER THE LIST.
[2017-12-04] MEDS ORDERED: VANCOMYCIN PER PHARMACY MC PRN (14:45)
--- NOTE | 2017-12-04 14:56 | NUR ---
I SPOKE EARLIER WITH JEFFRY FROM [facility]. SHE SAID SHE IS STILL TRYING TO SPEAK WITH ROBLES FROM [facility]. I CALLED JEFFRY AT [facility] TO INFORM HER THAT THE PATIENT NEEDS TO GO TO [facility]. LET MESSAGE FOR HER TO CALL ME BACK.
--- NOTE | 2017-12-04 15:31 | NUR ---
FAXED REVIEW TO [facility] [phone] PHONE [phone] ROBLES FAXED CONCURRENT REVIEW TO [facility] [phone] PHONE RICK [phone]
[2017-12-04 16:00] VITALS: BP 117/59
[2017-12-04] MEDS: CYCLOBENZAPRINE 10 MG TAB PO SCH (16:17)
--- NOTE | 2017-12-04 16:28 | NUR ---
PATIENT REFUSED TO BE TURNED AND CHANGED. EXPLAINED TO THE PATIENT THAT THE WOUNDS IN HER BUTTOCKS WILL GET WORSE FROM SITTING IN WET PADS. PATIENT STATES SHE FEELS COMFORTABLE AND DOES NOT WANT TO BE BOTHERED RIGHT NOW
--- NOTE | 2017-12-04 17:35 | NUR ---
TEMP 100.2. COOLING MEASURES PUT IN PLACE. PRN TYLENOL ADMINISTERED. WILL CONTINUE TO MONITOR
[2017-12-04] MEDS: ACETAMINOPHEN 325 MG TAB PO PRN (17:40)
--- NOTE | 2017-12-04 19:04 | NUR ---
TEMP RECHECKED 99.4. NO S/S OF DISTRESS NOTED
--- NOTE | 2017-12-04 19:36 | NUR ---
PATIENT REPORT GIVEN AT BEDSIDE. PATIENT ENDORSED IN STABLE CONDITION
--- NOTE | 2017-12-04 19:40 | NUR ---
RECEIVED PATIENT LYING COMFORTABLE ON BED. EXPLAIN PLAN OF CARE TO PATIENT. FALL PRECAUTION APPLIED. WILL CONTINUE TO MONITOR.
--- NOTE | 2017-12-04 21:00 | NUR ---
MEDICATION GIVEN SCHEDULE. BS TAKEN AND RECORDED WITH NO COVERAGE. PATIENT REFUSED TO BE CLEANED AND EXPLAINED THE IMPORTANCE AND BENEFITS TO HER WOUND AREA. PATIENT STATES "IM OK RIGHT NOW DONT BOTHER ME IM COMFORTABLE. NO S/S OF DISTRESS NOTED AT THIS TIME. CALL LIGHTS WITHIN REACH. WILL CONTINUE TO MONITOR.
[2017-12-04] MEDS: ATORVASTATIN 20 MG TAB PO SCH (21:03)
[2017-12-05] VITALS: BP 127/62
[2017-12-05] MEDS: PIPER/TAZO 3.375GM/D5W PREMIX 50 ML IV SCH ×4 (00:03→17:31)
[2017-12-05] MEDS: Z-GUARD PASTE TP SCH ×2 (01:00→13:15)
[2017-12-05] MEDS: NACL 0.9% 1,000 ML IV SCH ×3 (01:36→22:55)
--- NOTE | 2017-12-05 02:00 | NUR ---
PATIENT AGREED TO BE CLEAN AND CHANGE. Z-GUARD PASTE APPLIED TO THE AFFECTED AREA. LINEN CHANGED AND REPOSITIONED PATIENT TO HER SIDE. GAVE PATIENT SNACK AND ATTENDED PATIENT NEEDS. NO S/S OF DISTRESS NOTED AT THIS TIME. WILL CONTINUE TO MONITOR.
[2017-12-05] MEDS: MORPHINE SULFATE 2 MG/ML SYR IVP PRN ×5 (03:52→22:55)
--- NOTE | 2017-12-05 07:20 | NUR ---
GAVE REPORT TO AM SHIFT RN AT BEDSIDE FOR CONTINUITY OF CARE. PATIENT IN STABLE CONDITION.
--- NOTE | 2017-12-05 07:20 | NUR ---
RECEIVED PT REPORT FROM VIDEO CONTROL OPERATOR RN AT BEDSIDE. PT IS AAOX3. NO S/S OF DISTRESS ON RM AIR. SPLINT NOTED TO THE RIGHT LEG. DRESSING CLEAN DRY AND INTACT. IV NOTED TO LEFT AC, 22G, PATENT AND INTACT, INFUSING WELL. BED IN LOWEST POSITION, CALL LIGHT WITHIN REACH. WILL CONTINUE TO MONITOR
[2017-12-05] MEDS: BLOOD GLUCOSE MONITORING 1 DEV DEV FS SCH ×4 (07:32→20:14)
[2017-12-05 07:41] LABS: BASOPHILS # (AUTO) 0.1 K/uL (0.00-0.22); BASOPHILS % (AUTO) 0.6 % (0.0-2.0); EOSINOPHILS # (AUTO) 0.1 K/uL (0-0.4); EOSINOPHILS % (AUTO) 1.4 % (0.0-4.0); HEMATOCRIT 32.1 % (36-48); HEMOGLOBIN 10.3 g/dL (12.0-16.0); LYMPHOCYTES # (AUTO) 1.2 K/uL (2.5-16.5); LYMPHOCYTES % (AUTO) 10.8 % (20.5-51.1); MEAN CORPUSCULAR HEMOGLOBIN 25 pg (27-31); MEAN CORPUSCULAR HGB CONC 32 g/dL (33-37); MEAN CORPUSCULAR VOLUME 77.8 fL (80-94); MONOCYTES # (AUTO) 0.9 K/uL (0.8-1.0); MONOCYTES % (AUTO) 8.4 % (1.7-9.3); NEUTROPHILS # (AUTO) 8.4 K/uL (1.8-7.7); NEUTROPHILS % (AUTO) 78.8 % (42.2-75.2); PLATELET COUNT (AUTO) 413 K/uL (140-450); RED BLOOD CELL COUNT(AUTO) 4.13 MIL/uL (4.20-5.40); RED CELL DISTRIBUTION WIDTH 16.8 % (11.6-13.7); WHITE BLOOD COUNT (AUTO) 10.7 K/uL (4.8-10.8)
[2017-12-05 07:50] LABS: ANION GAP 5.9 (8-16); CARBON DIOXIDE 30.1 mmol/L (21-32); CREATININE 0.6 mg/dL (0.6-1.3)
[2017-12-05 08:00] VITALS: BP 120/74
[2017-12-05] MEDS: FERROUS SULFATE 325 MG TABEC PO SCH ×2 (08:15→16:05)
[2017-12-05] MEDS: CYCLOBENZAPRINE 10 MG TAB PO SCH ×3 (08:15→16:05)
[2017-12-05] MEDS: LACTOBACILLUS RHAMNOSUS GG 1 EACH CAP PO SCH (08:16)
[2017-12-05] MEDS: ASCORBIC ACID 500 MG TAB PO SCH (08:16)
--- NOTE | 2017-12-05 10:00 | NUR ---
Dairy Powder Mixer Operator Notes: I faxed Patient's Clinical information and MD orders for short-term placement for wound care, IV antibiotics, and Physical Therapy to Snf Facilities. [facility] , [facility] , [facility] , [facility] , [place] , and [facility] .
[2017-12-05] MEDS: VANCOMYCIN 1,500 MG in NACL 0.9% 500 ML IV SCH ×2 (10:38→21:09)
--- NOTE | 2017-12-05 10:57 | NUR ---
Hospital Plan Administrator Notes: I received a call from [facility] . I spoke to Juan Carlos who stated that they have no beds available for homeless Patients at this time.
--- NOTE | 2017-12-05 13:05 | NUR ---
BUTTOCKS WOUND CLEANED WITH NS, PATTED DRY, Z GUARD APPLIED, OPTIFOAM APPLIED.
--- NOTE | 2017-12-05 14:25 | NUR ---
Android Platform Developer Notes: I called [facility] usp facility . I spoke to Divina from admissions stating that she has review patient's clinical information and they have no beds available for homeless Patients at this time.
--- NOTE | 2017-12-05 14:34 | NUR ---
Bullard Operator Notes: I called [facility] at and I Spoke to Stephanie from admissions about Patient inquiry for short-term Placement. According to Stephanie she has been in meetings and has not yet review information however; asked for my contact inf. stating that she will give me a call later with an answer. I agreed and provided her my direct contact Information and I ended the call.
--- NOTE | 2017-12-05 15:11 | NUR ---
PT NOTES CHART REVIEWED. CLEARED BY RN FOR P.T. TX. ATTEMPTED TO SEE PATIENT FOR TX. HOWEVER PATIENT REFUSED. PATIENT STATED, "I JUST WANT TO SLEEP." ENCOURAGED TO PARTICIPATE, BUT DECLINED. RN IS AWARE. PRIMARY PHYSICAL THERAPIST AWARE. Addendum: 12/05/17 at 1526 by Nisha Talbot PT PHYSICAL THERAPY CO-SIGN The Physical Therapy Progress Notes documented by Sorting Cows Worker have been reviewed. Reviewed/Co-Signed by: Nisha Talbot, PETERSON Documentation Done by: Dyana Dominguez PTA
--- NOTE | 2017-12-05 15:17 | NUR ---
FAXED PROGRESS NOTES, MAR AND LABS TO [facility] [phone] PHONE [phone] ROBLES
--- NOTE | 2017-12-05 15:55 | NUR ---
ASKED TO REPOSITION PT. PT REFUSED. EXPLAINED THE IMPORTANCE OF REPOSITIONING, PT STILL REFUSING. Addendum: 12/05/17 at 1742 by Ciro Ch RN PT ALSO REFUSED TO BE CHECKED IF SHE WET HERSELF.
[2017-12-05] MEDS: ACETAMINOPHEN 325 MG TAB PO PRN (16:05)
--- NOTE | 2017-12-05 16:10 | NUR ---
FAXED CONCURRENT REVIEW TO [facility] [phone] PHONE [phone]
--- NOTE | 2017-12-05 16:12 | NUR ---
RECEIVED A CALL FROM CONTRERAS FROM [employer]. SHE CANNOT GIVE ME AN AUTH FOR TRANSPORT OR FOR SNF UNTIL WE FIND THE SNF. SHE ALSO SAID THAT WE COULD GO ON LINE TO [employer] FOR A LONGER LIST OF SNF'S I INFORMED ADRIÁN MEDICAL RESEARCH SCIENTIST. AFTER HOURS CALL FOR [facility] IS [phone].
[2017-12-05 16:30] VITALS: BP 128/70
--- NOTE | 2017-12-05 17:30 | NUR ---
MADE PT AND HER FAMILY, (SISTER), AWARE THAT PT SHOULD LIMIT SUGAR INTAKE AND SWEETS BROUGHT FROM HOME. PT AND HER SISTER VERBALIZED UNDERSTANDING.
--- NOTE | 2017-12-05 19:20 | NUR ---
ENDORSED PT TO MACHINE VENEER REPAIRER RN. PT IN STABLE CONDITION.
--- NOTE | 2017-12-05 19:21 | NUR ---
RECEIVED PATIENT ASLEEP ON BED IN COMFORTABLE POSITION. FALL PRECAUTION APPLIED. EXPLAIN PLAN OF CARE AND VERBALIZED UNDERSTANDING. CALL LIGHT WITHIN REACH. WILL CONTINUE TO MONITOR.
--- NOTE | 2017-12-05 21:00 | NUR ---
SCHEDULED MEDICATION GIVEN TOLERATED WELL. BS TAKEN AND RECORDED NO COVERAGE. NO S/S OF DISTRESS NOTED AT THIS TIME. CALL LIGHTS WITHIN REACH. WILL CONTINUE TO MONITOR.
[2017-12-05] MEDS: ATORVASTATIN 20 MG TAB PO SCH (21:09)
--- NOTE | 2017-12-05 22:00 | NUR ---
PATIENT CLEANED AND CHANGED REPLACE A NEW PADS AND LINEN. WOUND CLEANED AND APPLIED Z-GUARD PASTE TO THE BOTH BUTTOCKS AREA AND PERINEAL AREA. PATIENT TURNED AND REPOSITIONED TO HER SIDE AND PLACE IN COMFORTABLE POSITION. CALL LIGHT WITHIN REACH. NO S/S OF DISTRESS NOTED AT THIS TIME. WILL CONTINUE TO MONITOR.
--- NOTE | 2017-12-05 22:30 | NUR ---
RECEIVED A CALL FROM LAB THAT VANCOMYCIN LEVEL 35.1. NOTIFIED DR. DR. BOLAND. NO ORDER MADE.
[2017-12-06] VITALS: BP 118/62
--- NOTE | 2017-12-06 | NUR ---
SCHEDULE MEDICATION AND V/S TAKEN AND RECORDED. NO DISTRESS NOTED AT THIS TIME. CALL LIGHT WITHIN REACH. WILL CONTINUE TO MONITOR.
[2017-12-06] MEDS: PIPER/TAZO 3.375GM/D5W PREMIX 50 ML IV SCH ×5 (00:24→23:14)
[2017-12-06] MEDS: Z-GUARD PASTE TP SCH ×2 (01:19→12:43)
--- NOTE | 2017-12-06 02:20 | NUR ---
SEEN PATIENT ASLEEP ON BED IN COMFORTABLE POSITION. NO S/S OF DISTRESS NOTED. CALL LIGHT WITHIN REACH. WILL CONTINUE TO MONITOR.
[2017-12-06] MEDS: MORPHINE SULFATE 2 MG/ML SYR IVP PRN ×6 (05:35→23:14)
[2017-12-06] MEDS: BLOOD GLUCOSE MONITORING 1 DEV DEV FS SCH ×4 (07:01→20:16)
--- NOTE | 2017-12-06 07:20 | NUR ---
ENDORSEMENT GIVEN TO AM SHIFT NURSE AT BEDSIDE FOR CONTINUITY OF CARE. PATIENT IN STABLE CONDITION.
--- NOTE | 2017-12-06 07:30 | NUR ---
RECEIVED PT REPORT FROM INTELLIGENCE ENGINEER RN AT BEDSIDE. PT IS AAOX3. NO S/S OF DISTRESS ON RM AIR. SPLINT NOTED TO THE RIGHT LEG. DRESSING CLEAN DRY AND INTACT. IV NOTED TO RIGHT AC, 22G, PATENT AND INTACT, INFUSING WELL. BED IN LOWEST POSITION, CALL LIGHT WITHIN REACH. WILL CONTINUE TO MONITOR
[2017-12-06 08:00] VITALS: BP 130/76
[2017-12-06] MEDS: FERROUS SULFATE 325 MG TABEC PO SCH ×2 (08:39→16:36)
[2017-12-06] MEDS: CYCLOBENZAPRINE 10 MG TAB PO SCH ×3 (08:40→16:36)
[2017-12-06] MEDS: ASCORBIC ACID 500 MG TAB PO SCH (08:40)
[2017-12-06] MEDS: LACTOBACILLUS RHAMNOSUS GG 1 EACH CAP PO SCH (08:40)
--- NOTE | 2017-12-06 08:40 | NUR ---
COMPUTER CRASHED DURING MED ADMINISTRATION.
--- NOTE | 2017-12-06 09:50 | NUR ---
BED BATH GIVEN. BMX1, URINE INCONTINENT X1. CLEANED WOUND WITH NS, PATTED DRY, APPLIED Z GUARD, APPLIED OPTIFOAM. PT TOLERATED FAIR.
[2017-12-06 10:45] LABS: BASOPHILS % (AUTO) 0.5 % (0.0-2.0); EOSINOPHILS # (AUTO) 0.1 K/uL (0-0.4); HEMATOCRIT 31.3 % (36-48); HEMOGLOBIN 9.9 g/dL (12.0-16.0); LYMPHOCYTES # (AUTO) 1.2 K/uL (2.5-16.5); LYMPHOCYTES % (AUTO) 12.8 % (20.5-51.1); MEAN CORPUSCULAR HEMOGLOBIN 25 pg (27-31); MEAN CORPUSCULAR HGB CONC 32 g/dL (33-37); MEAN CORPUSCULAR VOLUME 78.7 fL (80-94); MONOCYTES # (AUTO) 0.9 K/uL (0.8-1.0); MONOCYTES % (AUTO) 8.8 % (1.7-9.3); NEUTROPHILS # (AUTO) 7.5 K/uL (1.8-7.7); NEUTROPHILS % (AUTO) 76.9 % (42.2-75.2); PLATELET COUNT (AUTO) 402 K/uL (140-450); RED BLOOD CELL COUNT(AUTO) 3.97 MIL/uL (4.20-5.40); RED CELL DISTRIBUTION WIDTH 17.2 % (11.6-13.7); WHITE BLOOD COUNT (AUTO) 9.7 K/uL (4.8-10.8)
[2017-12-06 11:37] LABS: ANION GAP 6.8 (8-16); CARBON DIOXIDE 31.2 mmol/L (21-32); CREATININE 0.5 mg/dL (0.6-1.3)
[2017-12-06] MEDS: VANCOMYCIN 1,500 MG in NACL 0.9% 500 ML IV SCH ×2 (12:37→21:13)
[2017-12-06] MEDS: HYDROcodone/APAP 10/325 MG 1 TAB TAB PO PRN ×2 (14:27→21:14)
--- NOTE | 2017-12-06 14:30 | NUR ---
BARNES CATH INSERTED, PT TOLERATED WELL.
[2017-12-06] MEDS: NACL 0.9% 1,000 ML IV SCH (15:30)
--- NOTE | 2017-12-06 15:48 | NUR ---
TRIED TO PLACE C COLLAR FOR PT WITH CHARGE NURSE ZARIA. PT WAS PREMEDICATED WITH PAIN MED (MORPHINE), HOWEVER, PT CANNOT TOLERATED THE C COLLAR. PT REFUSED TO HAVE THE C COLLAR ON.
[2017-12-06 16:00] VITALS: BP 128/67
--- NOTE | 2017-12-06 19:25 | NUR ---
RECEIVED REPORT FROM DAY SHIFT NURSE AT PT BEDSIDE. PT IN STABLE CONDITION. PT CURRENTLY SLEEPING. IV ACCESS IN R AC 22G WITH IVF RUNNING PER MD ORDERS. IV IS PATENT AND INTACT. PT HAS BARNES CATHETER, DRAINING CLEAR YELLOW URINE. PT HAS BILATERAL BUTTOCK ABRASIONS COVERED WITH OPTIFORM. BED IS LOCKED, LOW POSITION AND SIDE RAILS UPX2. CALL LIGHT IS WITHIN REACH. BOARD IS UPDATED. WILL CONTINUE TO MONITOR PT.
--- NOTE | 2017-12-06 19:25 | NUR ---
ENDORSED PT TO HYPO DIPPER RN. PT IN STABLE CONDITION.
--- NOTE | 2017-12-06 19:52 | NUR ---
SPOKE WITH PT ABOUT MD ORDERED C-COLLAR. PT IS REFUSING TO WEAR IT. WILL CONTINUE TO MONITOR.
--- NOTE | 2017-12-06 20:16 | NUR ---
BS CHECKED, 128. NO INSULIN COVERAGE NEEDED PER MD ORDERS.
[2017-12-06] MEDS: ATORVASTATIN 20 MG TAB PO SCH (21:12)
--- NOTE | 2017-12-06 21:14 | NUR ---
PT C/O PAIN IN NECK AND BODY. PT UPSET AND CURSING BECAUSE IT IS NOT TIME TO RECEIVE MORPHINE. MAD PT AWARE THAT NORCO GIVEN. Addendum: 12/07/17 at 0055 by Sweetie Oliveira RN MADE PT AWARE THAT SHE COULD HAVE NORCO NOW. NORCO GIVEN. WILL CONTINUE TO MONITOR PT.
--- NOTE | 2017-12-06 21:30 | NUR ---
ASSISTED PT WITH EATING A SNACK. PT TOLERATED WELL. WILL CONTINUE TO MONITOR.
--- NOTE | 2017-12-06 23:14 | NUR ---
PT C/O PAIN. MORPHINE GIVEN. WILL CONTINUE TO MONITOR PT.
[2017-12-07] VITALS: BP 128/68
--- NOTE | 2017-12-07 00:10 | NUR ---
PT VS WITHIN NORMAL LIMITS. NO SIGNS OR SYMPTOMS OF DISTRESS. WILL CONTINUE TO MONITOR PT.
[2017-12-07] MEDS: Z-GUARD PASTE TP SCH ×2 (01:00→15:30)
--- NOTE | 2017-12-07 01:00 | NUR ---
PT REFUSED TO BE TURNED AND SCREAMING. APPLIED ORDERED Z-GAURD CREAM TO PERIANAL AREA BUT UNABLE TO APPLY CREAM TO BUTTOCKS. WILL CONTINUE TO MONITOR PT.
--- NOTE | 2017-12-07 01:02 | NUR ---
PT REQUESTING PAIN MEDICATION. LET PT KNOW STILL ONE MORE HOUR UNTIL MORPHINE IS DUE BUT THAT NORCO WAS AVAILABLE NOW. PT SAID "GET OUT OF MY ROOM BITCH." WILL CONTINUE TO MONITOR PT.
[2017-12-07] MEDS: MORPHINE SULFATE 2 MG/ML SYR IVP PRN ×7 (02:13→23:56)
[2017-12-07] MEDS: NACL 0.9% 1,000 ML IV SCH ×3 (02:13→21:00)
--- NOTE | 2017-12-07 02:13 | NUR ---
PT C/O PAIN. MORPHINE GIVEN. WILL CONTINUE TO MONITOR PT.
--- NOTE | 2017-12-07 03:20 | NUR ---
PT ASLEEP IN BED. NO SIGNS OR SYMPTOMS OF DISTRESS. WILL CONTINUE TO MONITOR.
--- NOTE | 2017-12-07 04:33 | NUR ---
CNAS ATTEMPTING TO CHANGE AND TURN PT. PT BEGAN SCREAMING "DONT TOUCH ME YOU FUCKING BITCHES." PT SWUNG AT ONE ROTARY ENGINE ASSEMBLER. CNAS AND MYSELF LEFT PT ROOM. WILL CONTINUE TO MONITOR.
--- NOTE | 2017-12-07 04:50 | NUR ---
PT REQUESTING PAIN MEDICINE. LET PT KNOW MORPHINE WAS NOT DUE FOR ANOTHER 20 MIN. ALSO LET PT KNOW THAT NORCO WAS AVAILABLE NOW. PT SAID "FUCKING BITCH GIVE ME THE MORPHINE" LET PT KNOW THAT I WOULD BRING IT ONCE IT WAS DUE.
[2017-12-07] MEDS: PIPER/TAZO 3.375GM/D5W PREMIX 50 ML IV SCH ×4 (05:18→23:57)
--- NOTE | 2017-12-07 05:18 | NUR ---
ADMINISTERED MORPHINE TO PT. PT TOLERATED WELL. PT STATED "I WANT TO TALK WITH THE HUMAN FACTORS ERGONOMIST ABRAM." I LET THE PT KNOW SHE WAS ALLOWED TO AND I COULD GET THE INFORMATION FOR HER. PT STATED "I DONT WANT THE INFORMATION RIGHT NOW. NOT UNTIL MY MOM COMES." WILL CONTINUE TO MONITOR PT.
[2017-12-07] MEDS: BLOOD GLUCOSE MONITORING 1 DEV DEV FS SCH ×5 (06:18→21:01)
--- NOTE | 2017-12-07 06:27 | NUR ---
PT REFUSED BS CHECK. WILL CONTINUE TO MONITOR.
--- NOTE | 2017-12-07 07:11 | NUR ---
ENDORSED PT TO DAY SHIFT NURSE FOR CONTINUITY OF CARE. PT IN STABLE CONDITION.
--- NOTE | 2017-12-07 07:15 | NUR ---
RECEIVED PT REPORT FROM MINES SAFETY ENGINEER RN AT BEDSIDE. PT IS AAOX3. NO S/S OF DISTRESS ON RM AIR. SPLINT NOTED TO THE RIGHT LEG. DRESSING CLEAN DRY AND INTACT. IV NOTED TO RIGHT AC, 22G, PATENT AND INTACT, INFUSING WELL. BED IN LOWEST POSITION, CALL LIGHT WITHIN REACH. WILL CONTINUE TO MONITOR.
[2017-12-07 08:00] VITALS: BP 122/65
--- NOTE | 2017-12-07 08:10 | NUR ---
PT WAS FED FOR BREAKFAST.
[2017-12-07] MEDS: LACTOBACILLUS RHAMNOSUS GG 1 EACH CAP PO SCH (08:12)
[2017-12-07] MEDS: ASCORBIC ACID 500 MG TAB PO SCH (08:12)
[2017-12-07] MEDS: FERROUS SULFATE 325 MG TABEC PO SCH ×2 (08:13→16:51)
[2017-12-07] MEDS: CYCLOBENZAPRINE 10 MG TAB PO SCH ×3 (08:13→16:51)
--- NOTE | 2017-12-07 10:05 | NUR ---
PT REFUSED TO BE CLEANED AND REPOSITIONED AT THIS TIME.
[2017-12-07] MEDS: VANCOMYCIN 1,500 MG in NACL 0.9% 500 ML IV SCH ×2 (10:43→21:11)
--- NOTE | 2017-12-07 11:25 | NUR ---
PT REFUSED TO BE CLEANED AND REPOSITIONED AT THIS TIME.
--- NOTE | 2017-12-07 11:26 | NUR ---
PT REFUSED TO BE TURNED FOR CHECKING THE WOUND. ASKED PT IF SHE POOPED, PT SAID NO.
[2017-12-07] MEDS: HYDROcodone/APAP 10/325 MG 1 TAB TAB PO PRN ×2 (12:48→18:59)
--- NOTE | 2017-12-07 15:10 | NUR ---
PT WAS PREMEDICATE WITH PAIN MEDS. PT HAS BEEN CLEANED, BED BATH GIVEN. ORAL CARE GIVEN. PT REFUSED TO BE TURNED TO THE LEFT SIDE, RIGHT BUTTOCK WOUND CAN NOT BE VISUALIZED. TURNED PT TO RIGHT SIDE MUSH SHE CAN TOLERATED. LEFT BUTTOCK WOUND CLEANED WITH NS, PATTED DRY APPLIED Z GUARD TO LEFT BUTTOCK WOUND, SACRAL AND PERINEAL AREA. CHANGED LEFT BUTTOCK OPTIFOAM. PT TOLERATED POORLY.
--- NOTE | 2017-12-07 15:11 | NUR ---
CALLED [facility] AND SPOKE WITH ARIAN [phone] NOTIFIED PT SEEDS TO BE TRANSFERRED TO HIGHER LEVEL OF CARE FOR NEURO SURGEON EVALUATION PER CERVICAL CT RESULT. RESIDENT DR MENA SPOKE WITH ARIAN AND WILL TALK TO CM TOMORROW AND WILL WORK ON IT.
--- NOTE | 2017-12-07 15:28 | NUR ---
ARIAN CALLED BACK AND STATED PATIENT CAN BE TRANSFERRED TO [facility] SHE IS WORKING ON THE AUTHORIZATION OF TRANSPORT AND HOSPITAL AND REQUESTED PAPERWORK TO BE FAXED.
[2017-12-07 16:00] VITALS: BP 113/77
--- NOTE | 2017-12-07 18:00 | NUR ---
PT WAS FED FOR DINNER. PT TOLERATED WELL.
--- NOTE | 2017-12-07 18:50 | NUR ---
ASKED HOUSE SUP LUANA FOR K PAD.
--- NOTE | 2017-12-07 19:10 | NUR ---
ARIAN PRETTY CALLED AND GAVE ME THE NAME AND PHONE # OF [facility] ZULETA FOR AM THAT OUR CM CAN TALK AND ARRANGE FOR PT.TRANSFER.[facility] ZULETA'S NAME IS ROBLES HER # IS [phone].
--- NOTE | 2017-12-07 19:25 | NUR ---
ENDORSE PT TO DENTAL HYGIENE INSTRUCTOR NURSE. PT IN STABLE CONDITION.
--- NOTE | 2017-12-07 19:26 | NUR ---
RECEIVED REPORT FROM DAY SHIFT RN FOR CONTINUITY OF CARE. PT IS A/OX4, ON ROOM AIR. ABLE TO MAKE NEEDS KNOWN, ABLE TO FOLLOW COMMANDS. PT HAS INCONTINENT ASSOCIATED DERMATITIS TO BUTTOCKS, BILATERALLY. PT HAS 22G IV TO RIGHT AC, ASYMPTOMATIC, INTACT AND PATENT. DISCUSSED PLAN OF CARE WITH PT, PT VERBALIZED UNDERSTANDING. VITAL SIGNS WITHIN NORMAL LIMITS. PT STABLE, NO SIGNS OF DISTRESS NOTED AT THIS TIME. BED IN LOWEST POSITION, BED ALARM ON. CALL LIGHT WITHIN REACH, WILL CONTINUE TO MONITOR.
[2017-12-07] MEDS: ATORVASTATIN 20 MG TAB PO SCH (21:00)
--- NOTE | 2017-12-07 21:12 | NUR ---
ADMINISTERED SCHEDULED MEDICATIONS, PT TOLERATED WELL.
--- NOTE | 2017-12-07 22:15 | NUR ---
PT TRIED TO FEED HERSELF BUT WAS UNABLE TO. FED PT HALF SANDWICH, JUICE, AND KEEGAN CRACKERS, PT TOLERATED WELL.
[2017-12-08] VITALS: BP 129/79
--- NOTE | 2017-12-08 | NUR ---
VITAL SIGNS WITHIN NORMAL LIMITS. PT STABLE, NO SIGNS OF DISTRESS NOTED AT THIS TIME. BED IN LOWEST POSITION, BED ALARM ON. CALL LIGHT WITHIN REACH, WILL CONTINUE TO MONITOR.
[2017-12-08] MEDS: Z-GUARD PASTE TP SCH ×2 (01:00→13:00)
--- NOTE | 2017-12-08 02:10 | NUR ---
SOFTWARE PACKAGING ENGINEER FED PT ONCE MORE REQUESTED BY PT.
[2017-12-08] MEDS: MORPHINE SULFATE 2 MG/ML SYR IVP PRN ×4 (03:12→11:57)
--- NOTE | 2017-12-08 03:12 | NUR ---
PT C/O GENERALIZED 10/10 PAIN AND REQUESTED MORPHINE. ADMINISTERED MORPHINE ORDERED FOR 10/10 PAIN, PT TOLERATED WELL.
--- NOTE | 2017-12-08 04:00 | NUR ---
PT STABLE, NO SIGNS OF DISTRESS NOTED AT THIS TIME. BED IN LOWEST POSITION, BED ALARM ON. CALL LIGHT WITHIN REACH, WILL CONTINUE TO MONITOR.
[2017-12-08] MEDS: BLOOD GLUCOSE MONITORING 1 DEV DEV FS SCH ×2 (05:59→12:04)
[2017-12-08] MEDS: PIPER/TAZO 3.375GM/D5W PREMIX 50 ML IV SCH ×2 (05:59→11:57)
[2017-12-08] MEDS: NACL 0.9% 1,000 ML IV SCH (06:00)
--- NOTE | 2017-12-08 06:00 | NUR ---
ADMINISTERED SCHEDULED MEDICATIONS AND PAIN MEDICATION FOR 10/10 GENERALIZED PAIN, PT TOLERATED WELL.
[2017-12-08 06:20] LABS: BASOPHILS # (AUTO) 0.1 K/uL (0.00-0.22); BASOPHILS % (AUTO) 0.6 % (0.0-2.0); EOSINOPHILS # (AUTO) 0.1 K/uL (0-0.4); EOSINOPHILS % (AUTO) 1.5 % (0.0-4.0); HEMATOCRIT 30.2 % (36-48); HEMOGLOBIN 9.7 g/dL (12.0-16.0); LYMPHOCYTES # (AUTO) 1.6 K/uL (2.5-16.5); LYMPHOCYTES % (AUTO) 17.4 % (20.5-51.1); MEAN CORPUSCULAR HEMOGLOBIN 25 pg (27-31); MEAN CORPUSCULAR HGB CONC 32 g/dL (33-37); MEAN CORPUSCULAR VOLUME 78.8 fL (80-94); MONOCYTES # (AUTO) 0.7 K/uL (0.8-1.0); MONOCYTES % (AUTO) 8.4 % (1.7-9.3); NEUTROPHILS # (AUTO) 6.5 K/uL (1.8-7.7); NEUTROPHILS % (AUTO) 72.1 % (42.2-75.2); PLATELET COUNT (AUTO) 417 K/uL (140-450); RED BLOOD CELL COUNT(AUTO) 3.83 MIL/uL (4.20-5.40); RED CELL DISTRIBUTION WIDTH 17.7 % (11.6-13.7)
[2017-12-08 06:47] LABS: ANION GAP 9.5 (8-16); CARBON DIOXIDE 29.6 mmol/L (21-32); CREATININE 0.6 mg/dL (0.6-1.3); POTASSIUM 4.1 mmol/L (3.5-5.1)
--- NOTE | 2017-12-08 06:52 | NUR ---
ENDORSED PT TO DAY SHIFT RN FOR CONTINUITY OF CARE. PT IN STABLE CONDITION.
--- NOTE | 2017-12-08 06:54 | NUR ---
RECEIVED BEDSIDE REPORT FROM MARBLE HELPER NURSE. PATIENT IS SLEEPING. NO SIGNS OF DISTRESS ON ROOM AIR. EASILY AROUSABLE. SHE IS BEDBOUND, STATES SHE IS IN TOO MUCH PAIN TO MOVE PER MARBLE HELPER, KYPHOSIS SEEN IN THE CERVICAL SPINE CT PER MARBLE HELPER SHE REFUSED A C COLLAR. SKIN HAS BUTTOCKS INCONTINENT DERMATITIS. R FOOT IN SHORT CAST. CLEAN, DRY AND INTACT. R AC 22G INFUSING NS AT 90. CLEAN, DRY AND INTACT. BARNES IS IN PLACE. DRAINING WELL. BED IN LOW POSITION. CALL LIGHT WITHIN REACH. WILL CONTINUE TO MONITOR
[2017-12-08 08:00] VITALS: BP 128/74
[2017-12-08] MEDS: FERROUS SULFATE 325 MG TABEC PO SCH (08:49)
[2017-12-08] MEDS: CYCLOBENZAPRINE 10 MG TAB PO SCH ×2 (08:50→12:00)
[2017-12-08] MEDS: ASCORBIC ACID 500 MG TAB PO SCH (08:50)
[2017-12-08] MEDS: LACTOBACILLUS RHAMNOSUS GG 1 EACH CAP PO SCH (08:50)
--- NOTE | 2017-12-08 08:51 | NUR ---
ADMINISTERED MEDS. PATIENT TOLERATED WELL. IV IS CLEAN, DRY AND INTACT. PATIENT IS A FEEDER, SHE ATE ALL HER FOOD EXCEPT THE COFFEE. PLACED K PAD ON PATIENTS BACK. NO OTHER COMPLAINTS AT THIS TIME. BED IN LOW POSITION. CALL LIGHT WITHIN REACH,
[2017-12-08] MEDS: VANCOMYCIN 1,500 MG in NACL 0.9% 500 ML IV SCH (10:06)
--- NOTE | 2017-12-08 10:12 | NUR ---
ADMINISTERED MEDS. PATIENT TOLERATED WELL. IV IS CLEAN, DRY AND INTACT. BED IN LOW POSITION. CALL LIGHT WITHIN REACH. WILL CONTINUE TO MONITOR THE PATIENT.
--- NOTE | 2017-12-08 10:43 | NUR ---
P.T. NOTES RECEIVED CLEARANCE FROM NURSING, GAVE PAIN MEDS 45 MINUTES PRIOR TO SEEING PATIENT. INITIALLY PATIENT AGREEABLE, PILLOWS AND BLANKETS REMOVED, WHEN EXPLAINED GOAL FOR THE DAY FOR PROMOTING MOVEMENT DECREASING CONTRACTURE DEVELOPMENT, PT SAID "I AM IN PAIN! I MOVE THEM (THEN DEMONSTRATED WIGGLING TOES AND FINGERS) WHEN ASKED TO MOVE BIGGER JOINTS SHE SCREAMED "NO I CAN'T" THEN FURTHER ENCOURAGED FOR THERAPY STAFF TO ASSIST, PT SAID "NO! DON'T MOVE ME." DESPITE ENCOURAGEMENT AND EDUCATION PATIENT REFUSED REHAB SERVICES. NO CONSENT FOR CARE GIVEN TODAY.
--- NOTE | 2017-12-08 10:45 | NUR ---
CALLED [facility] THIS MORNING AND SPOKE WITH ROBLES ABOUT TRANSFER TO HIGHER LEVEL. SHE SAID WHEN WE FIND AN ACCEPTING FACILITY, TO CALL HER FOR AUTH. CAN TRY [facility], [facility], [facility]. I CALLED [facility] AND SPOKE WITH CURTIS IN ADMITTING. FAXED INQUIRY TO HER. SHE SAID THAT WE WOULD NEED TO GET AN ACCEPTING PHYSICIAN. SHE ALSO SAID NO BEDS AT THIS TIME. I INFORMED DR. MENA ABOUT HIM GETTING AN ACCEPTING PHYSICIAN AND FOR THAT PHYSICIAN TO CALL ADMITTING AT [facility]. I CALLED [facility] AND SPOKE WITH ADAM IN ADMITTING. SHE ASKED FOR THE FACE SHEET AND ORDER TO FAXED TO HER AT [phone],
--- NOTE | 2017-12-08 10:56 | NUR ---
RECEIVED A CALL FROM ADMA SZYMANSKI [facility]. HER HOSPITALIST, DR. MENA, WANTS TO SPEAK WITH OUR PHYSICIAN. PHONE IS [phone]. I GAVE OUR PHYSICIAN, DR. MENA THE PHONE NUMBER.
--- NOTE | 2017-12-08 11:09 | NUR ---
FAXED CONCURRENT REVIEW, PROGRESS NOTES, ORDER FOR HIGHER LEVEL OF CARE AND MED SHEETS TO [facility] [phone] PHONE ROBLES [phone]
--- NOTE | 2017-12-08 11:49 | NUR ---
FAXED CONCURRENT REVIEW TO NAMITA [phone] PHONE [phone]. RECEIVED A CALL FROM ADAM FROM [facility]. THE PATIENT CAN GO TO ROOM 598, PRIVATE ROOM ANYTIME. PHONE REPORT [phone], UNDER . I SPOKE WITH CONTRERAS FROM [place]. AUTH FOR [facility] IS [id number]. I CALLED [facility] AND TOLD DAAM. CONTRERAS FROM [place] SAID AUTH FOR TRANSPORT, IS [id number]. I CALLED [facility] AND SET UP TRANSPORT FOR FOR 1330. I CALLED DAWN RN AND INFORMED HER I ALSO INFORMED DR. MENA.I CALLED [facility] AND INFORMED THEM THAT PATIENT IS GOING TO ANOTHER FACILITY. SPOKE WITH JANINE.
[2017-12-08] MEDS ORDERED: ATOR20TA40 PO (11:52)
[2017-12-08] MEDS ORDERED: HEPA500056 SUBQ (11:52)
[2017-12-08] MEDS ORDERED: FER325 PO (11:52)
[2017-12-08] MEDS ORDERED: [UNRECOGNIZED DRUG - CODE] IV (11:53)
[2017-12-08] MEDS ORDERED: LACT10CA PO (11:53)
[2017-12-08] MEDS ORDERED: PIPE1SOL IV (11:53)
[2017-12-08] MEDS ORDERED: VANCOMYCIN PER PHARMACY MC PRN (11:55)
--- NOTE | 2017-12-08 12:00 | NUR ---
PATIENT SCREAMING I WANT TO EAT!. I TOLD HER THE TRAYS ARE COMING AND THAT ONCE ITS HERE I WILL HELP HER AND FEED HER. SHE SAID OK. EDUCATED PATIENT ON HER DISCHARGE TO [facility], EDUCATED ON DISEASE PROCESS, ABN S/SX, EDUCATED ON MEDS, WOUND CARE AND TO FOLLOW UP W DOCTORS WHEN SHE IS DISCHARGED. PATIENT VERBALIZED UNDERSTANDING. SHE IS UNABLE TO SIGN BECAUSE OF WEAKNESS. CALLED HER SON, HER SON IS AWARE OF THE TRANSFER. GAVE REPORT TO HANG LEAL AT [facility]. I GAVE HER MY CALL BACK NUMBER AND ANSWERED ALL QUESTIONS AT THIS TIME. SHE SAID TO KEEP BARNES AND IV ON. WILL CONTINUE TO MONITOR THE PATIENT.
--- NOTE | 2017-12-08 13:30 | NUR ---
PATIENT CHANGED FOR TRANSFER, SHE WAS MAD AND DID NOT WANT TO BE CHANGED, TOLD HER IT WAS IMPORTANT BUT SHE KEPT SCREAMING DONT TOUCH ME! WE CHANGED HER AND TUBE BENDER FED HER AFTER THE CHANGE. PATIENT REFUSED TO TAKE ANY DISCHARGE PHOTOS OF HER WOUNDS.
--- NOTE | 2017-12-08 14:00 | NUR ---
[facility] PICKED UP PATIENT. ID BANDS REMOVED. PATIENT LEFT IN STABLE CONDITION. ALL BELONGINGS W PATIENT
[2017-12-08] MEDS: HYDROcodone/APAP 10/325 MG 1 TAB TAB PO PRN (15:23)
[2017-12-08] MEDS ORDERED: VANCOMYCIN 1,500 MG in NACL 0.9% 500 ML IV SCH (22:00)
--- NOTE | 2017-12-09 07:43 | NUR ---
FAXED DISCHARGE SUMMARY TO [facility] [phone]' FAXED DISCHARGE SUMMARY TO NAMITA [phone]
== END 2017-12-08 14:00 | disposition short-term general hospital (02) | DRG 720 ==
LOC: MED 22:20 → MTU 11-29 01:46
PROVIDERS: ADMIT Family Medicine; ATTEND Family Medicine
DX: A41.02 Sepsis due to Methicillin resistant Staphylococcus aureus (principal); N17.0 Acute kidney failure with tubular necrosis; E43 Unspecified severe protein-calorie malnutrition; L89.309 Pressure ulcer of unspecified buttock, unspecified stage; E11.21 Type 2 diabetes mellitus with diabetic nephropathy; M84.474A Pathological fracture, right foot, initial encounter for fracture; E83.39 Other disorders of phosphorus metabolism; E86.0 Dehydration; E83.42 Hypomagnesemia; E11.51 Type 2 diabetes mellitus with diabetic peripheral angiopathy without gangrene; E87.1 Hypo-osmolality and hyponatremia; N39.0 Urinary tract infection, site not specified; R65.20 Severe sepsis without septic shock; E78.5 Hyperlipidemia, unspecified; E87.6 Hypokalemia; M79.7 Fibromyalgia; E11.69 Type 2 diabetes mellitus with other specified complication; M86.9 Osteomyelitis, unspecified; M06.9 Rheumatoid arthritis, unspecified; F15.10 Other stimulant abuse, uncomplicated; F41.9 Anxiety disorder, unspecified; F17.210 Nicotine dependence, cigarettes, uncomplicated; D50.9 Iron deficiency anemia, unspecified; F12.10 Cannabis abuse, uncomplicated; F11.10 Opioid abuse, uncomplicated; L30.9 Dermatitis, unspecified; E83.51 Hypocalcemia; B96.20 Unspecified Escherichia coli [E. coli] as the cause of diseases classified elsewhere; B96.5 Pseudomonas (aeruginosa) (mallei) (pseudomallei) as the cause of diseases classified elsewhere; B96.1 Klebsiella pneumoniae [K. pneumoniae] as the cause of diseases classified elsewhere; B96.6 Bacteroides fragilis [B. fragilis] as the cause of diseases classified elsewhere; M54.2 Cervicalgia; Z68.23 Body mass index [BMI] 23.0-23.9, adult; Z59.0 Homelessness; Z88.2 Allergy status to sulfonamides; Z79.899 Other long term (current) drug therapy; Z91.14 Patient's other noncompliance with medication regimen; Z79.84 Long term (current) use of oral hypoglycemic drugs
CPT/HCPCS: 36415; 71045; 72125; 73610; 73630; 76770; 80048; 80053; 80202; 80305; 81001; 82150; 82272; 82607; 82728; 82746; 82948; 83036; 83540; 83605; 83690; 83735; 83880; 84100; 84134; 84436; 84439; 84443; 84479; 84484; 85025; 85045; 85610; 85730; 87040; 87070; 87075; 87081; 87086; 87186; 87205; 93005; 93970; 96361; 96365; 96366; 96367; 96375; 97110; 97140; 97530; 97535; 99285; J0696; J1644; J1815; J1885; J2270; J2543; J3370; J3480; J7030; J7060; Q0092

== ENCOUNTER 2018-03-17 05:45 | Inpatient (IN) | payer OTHER ==
[~2018-03-17] VITALS: Ht 175.3 cm; Wt 75.7 kg
[~2018-03-17 05:45] MED LIST changes: -ATOR20TA PO; +ATOR20TA40 PO; +FER325 PO; -FLOR250 PO; +HEPA500056 SUBQ; +LACT10CA PO; -NITR100C7 PO; +PIPE1SOL IV; +[UNRECOGNIZED DRUG - CODE] IV
--- NOTE | 2018-03-17 05:45 | NUR ---
PT BIBA BLS. TAKEN TO BED 9
--- NOTE | 2018-03-17 05:45 | NUR ---
BIB EMS. PT PRESENTS TO ED AFTER FALLING AT LIVING FACILITY. PT STATES GETTING OUT TO WALK THIS AM WHEN SHE LOST HER BALANCE ON A HILL, FELL BACKWARD AND TUMBLED. PT HIT LEFT SIDE FOREHEAD. NO ALOC, A&OX4, NO LOSS OF CONCIOUSNESS, NO DIZZINESS, ABRASION NOTED. PT C/O PAIN TO LEFT ANKLE, 1+ NON-PITTING EDEMA; PAIN TO RIGHT UPPER LEG RADIATING TO RIGHT HIP; PAIN TO LEFT SIDE FOREHEAD; 10/10 PAIN. BILAT CMS INTACT. VSS. POSITIONED IN BED FOR COMFORT WITH SIDE RAILS UP. HOB ELEVATED. DR THAPA AT BEDSIDE FOR EVALUATION. CONTINUE TO MONITOR.
[2018-03-17 05:48] VITALS: BP 122/93
[2018-03-17] MEDS ORDERED: MORPHINE SULFATE 4 MG/ML SYR IVP ONE (05:50)
[2018-03-17] MEDS ORDERED: ONDANSETRON 4 MG/2 ML VIAL IVP ONE (05:50)
--- NOTE | 2018-03-17 05:50 | NUR ---
Dr. Mackenzie evaluating patient at bedside.
--- NOTE | 2018-03-17 06:02 | NUR ---
STERILIZER MACHINE OPERATOR MADE AWARE PATIENT IS READY FOR EXAMS
[2018-03-17] MEDS ORDERED: MSCON15 PO (06:08)
[2018-03-17] MEDS ORDERED: SENN-72 PO (06:08)
[2018-03-17] MEDS ORDERED: ZOLP5TAB1 PO (06:08)
[2018-03-17] MEDS ORDERED: DIVA500T1 PO (06:08)
[2018-03-17] MEDS ORDERED: CLON0.1T42 PO (06:08)
[2018-03-17] MEDS ORDERED: MULT-2253 PO (06:08)
[2018-03-17] MEDS ORDERED: DOCU-299 PO (06:08)
[2018-03-17] MEDS ORDERED: ACET-2619 PO (06:08)
[2018-03-17] MEDS ORDERED: ATA25 PO (06:08)
[2018-03-17] MEDS ORDERED: SLIDE SUBQ (06:08)
[2018-03-17] MEDS ORDERED: LOV40I SUBQ (06:08)
[2018-03-17] MEDS ORDERED: CARI350T PO (06:08)
[2018-03-17] MEDS ORDERED: NUTR30LI7 PO (06:08)
[2018-03-17] MEDS ORDERED: HYDR-5122 PO (06:08)
[2018-03-17] MEDS ORDERED: ASCO500T45 PO (06:08)
--- NOTE | 2018-03-17 06:14 | NUR ---
Ashly hung in [facility] - 03/17/18 at 0616 by DUGLAS PT TAKEN TO BED 9
--- NOTE | 2018-03-17 06:14 | NUR ---
PT TAKEN TO CT
[2018-03-17] MEDS ORDERED: fentaNYL 0.05 MG/ML VIAL IVP ONE ×2 (07:25→10:10)
--- NOTE | 2018-03-17 07:35 | NUR ---
REPORT FROM SUKHJINDER MAURICIO
--- NOTE | 2018-03-17 08:30 | NUR ---
PT ONSTRETCHER IN NAD, NO COMPLAINTS
--- NOTE | 2018-03-17 09:30 | NUR ---
PT ONSTRETCHER IN NAD, NO COMPLAINTS
--- NOTE | 2018-03-17 10:00 | NUR ---
PT ON STRETCHER, ASSISTED ONTO BEDPAN
--- NOTE | 2018-03-17 10:22 | NUR ---
PT ONSTRETCHER IN NAD, NO COMPLAINTS
[2018-03-17] MEDS ORDERED: NACL 0.9% 1,000 ML IV SCH (10:38)
[2018-03-17] MEDS ORDERED: DOCUSATE SODIUM 100 MG GELCAP PO PRN (10:40)
[2018-03-17] MEDS ORDERED: ONDANSETRON 4 MG/2 ML VIAL IM/IVP PRN (10:40)
[2018-03-17] MEDS ORDERED: MORPHINE SULFATE 2 MG/ML SYR IVP PRN (10:40)
[2018-03-17] MEDS ORDERED: HYDROcodone/APAP 7.5/325 MG 1 TAB PO PRN (10:40)
[2018-03-17] MEDS ORDERED: ACETAMINOPHEN 325 MG TAB PO PRN (10:40)
--- NOTE | 2018-03-17 11:05 | NUR ---
PT ADMITTED AT THIS TIME VIA [facility]. RECEIVED BEDSIDE REPORT FROM ER NURSE. PT ALERT, AWAKE, VERBALLY RESPONSIVE. TRANSFERRED FROM [facility] TO BED VIA 3-PERSON TOTAL ASSIST. LEFT LONG LEG CAST IN PLACE. LEFT FOREHEAD DRESSING CLEAN & DRY. PT REFUSED TO BE TURNED OR CHANGED D/T C/O PAIN TO LEFT LEG WITH MOVEMENT. EXPLAINED IMPORTANCE OF COMPLETE BODY ASSESSMENT. PT VERBALIZED UNDERSTANDING & STATES SHE WILL AGREE LATER "WHEN (SHE IS) MORE SETTLED & NOT IN PAIN." PT ORIENTED TO ROOM & UNIT. VERBALIZED UNDERSTANDING. FALL PRECAUTIONS & CONTACT ISOLATION PRECAUTIONS IN PLACE. CALL LIGHT WITHIN REACH. LEFT AC IV INTACT & ASYMPTOMATIC.
--- NOTE | 2018-03-17 11:15 | NUR ---
Patient will be admitted to care of STANLEY STEWART. Admited to [facility]. Will go to room 115. Belongings list completed. Report to ERICKA MAURICIO.
[2018-03-17 11:30] VITALS: BP 118/55
[2018-03-17 11:36] LABS: BASOPHILS % (AUTO) 0.2 % (0.0-2.0); EOSINOPHILS % (AUTO) 0.4 % (0.0-4.0); HEMATOCRIT 40.1 % (36-48); HEMOGLOBIN 13.3 g/dL (12.0-16.0); LYMPHOCYTES # (AUTO) 1.3 K/uL (2.5-16.5); LYMPHOCYTES % (AUTO) 14.5 % (20.5-51.1); MEAN CORPUSCULAR HEMOGLOBIN 29 pg (27-31); MEAN CORPUSCULAR HGB CONC 33 g/dL (33-37); MEAN CORPUSCULAR VOLUME 88.2 fL (80-94); MONOCYTES # (AUTO) 0.9 K/uL (0.8-1.0); NEUTROPHILS # (AUTO) 6.4 K/uL (1.8-7.7); NEUTROPHILS % (AUTO) 73.9 % (42.2-75.2); PLATELET COUNT (AUTO) 181 K/uL (140-450); RED BLOOD CELL COUNT(AUTO) 4.55 MIL/uL (4.20-5.40); RED CELL DISTRIBUTION WIDTH 15.6 % (11.6-13.7); WHITE BLOOD COUNT (AUTO) 8.6 K/uL (4.8-10.8)
[2018-03-17] MEDS ORDERED: INSULIN LISPRO SLIDING SCALE 100 UNITS/ML VIAL SUBQ PRN (11:40)
[2018-03-17] MEDS ORDERED: DEXT 5% / NACL 0.45% 1,000 ML IV SCH (11:40)
[2018-03-17 11:43] LABS: ALBUMIN 3.4 g/dL (3.4-5.0); ANION GAP 9.8 (8-16); CARBON DIOXIDE 33.2 mmol/L (21-32); CREATININE 0.8 mg/dL (0.6-1.3); TOTAL BILIRUBIN 0.2 mg/dL (0.0-1.0)
[2018-03-17 11:45] LABS: PROTHROMBIN TIME 10.1 secs (10.8-13.4)
--- NOTE | 2018-03-17 12:00 | NUR ---
BODY ASSESSMENT COMPLETED AT THIS TIME. PT COOPERATIVE WITH CARE. SKIN CLEAR POSTERIORLY. PT VOIDED VIA BED JORDAN WITH MIN ASSIST. LEFT LONG LEG CAST IN PLACE. CAPILLARY REFILL BRISK TO LEFT TOES. PT DRESSED IN YELLOW GOWN. BED ALARM ON. CALL LIGHT WITHIN REACH.
[2018-03-17] MEDS ORDERED: hydrOXYzine HCL 25 MG TAB PO PRN (12:10)
[2018-03-17] MEDS ORDERED: CARISOPRODOL 350 MG TAB PO PRN (12:10)
[2018-03-17] MEDS ORDERED: ZOLPIDEM 5 MG TAB PO PRN (12:10)
[2018-03-17] MEDS ORDERED: cloNIDine 0.1 MG TAB PO PRN (12:10)
[2018-03-17 12:54] LABS: CHOL/HDL RATIO 1.9 (1-4.5); MAGNESIUM 1.8 mg/dL (1.8-2.4); PHOSPHORUS 5.2 mg/dL (2.5-4.9); THYROID STIMULATING HORMONE 1.12 uIU/mL (0.34-3.74)
--- NOTE | 2018-03-17 13:50 | NUR ---
PT C/O 10/10 PAIN AT THIS TIME. PAIN DECREASED TO 5/10 WITH MORPHINE IVP, BUT PAIN INCREASED AGAIN AFTER 1HR. DR GAMBOA NOTIFIED OF PAIN ASSESSMENT. PHYSICIAN TO SEE PT.
[2018-03-17] MEDS ORDERED: DIVA-58 PO (14:05)
[2018-03-17] MEDS: MORPHINE SULFATE 2 MG/ML SYR IVP PRN ×3 (14:28→22:38)
[2018-03-17] MEDS: NACL 0.9% 1,000 ML IV SCH (14:31)
--- NOTE | 2018-03-17 15:30 | NUR ---
PT ASLEEP, RESPIRATIONS EVEN & UNLABORED, FLACC 0. CALL LIGHT WITHIN REACH, BED ALARM ON.
[2018-03-17 16:00] VITALS: BP 140/73
[2018-03-17] MEDS: BLOOD GLUCOSE MONITORING 1 DEV DEV FS SCH ×2 (16:46→20:50)
[2018-03-17] MEDS: HYDROcodone/APAP 10/325 MG 1 TAB TAB PO PRN ×2 (16:52→20:47)
[2018-03-17] MEDS: FERROUS SULFATE 325 MG TABEC PO SCH (16:52)
--- NOTE | 2018-03-17 17:40 | NUR ---
PT IN HIGH FOWLERS IN BED, AAOx4 & VERBALLY RESPONSIVE, EATING DINNER. NO C/O PAIN AT REST. RESPIRATIONS EVEN & UNLABORED. CALL LIGHT WITHIN REACH, BED ALARM ON.
--- NOTE | 2018-03-17 19:08 | NUR ---
REPORT GIVEN TO PM NURSE TRIMBLE. PT GILSON.
--- NOTE | 2018-03-17 19:09 | NUR ---
REPORT RECEIVED FROM AM NURSE AT BEDSIDE. PT IN STABLE CONDITION. AAOX4. INTRODUCED SELF TO PT. BOARD UPDATED. NO COMPLAINTS OF PAIN. NO SOB. IV SITE L AC 20G RUNNING NS@100ML/HR PATENT AND INTACT. SKIN WARM, DRY, AND NOT INTACT DUE TO ABRASIONS ON THE FOREHEAD AND FINGER. BED LOCKED IN LOW POSITION. CALL RODAS WITHIN REACH. SAFETY PRECAUTIONS IN PLACE.
[2018-03-17 20:00] VITALS: BP 108/43
[2018-03-17] MEDS: ATORVASTATIN 20 MG TAB PO SCH (20:47)
[2018-03-17] MEDS: DIVALPROEX 500 MG TABEC PO SCH (20:47)
--- NOTE | 2018-03-17 20:47 | NUR ---
LIPITOR AND DEPAKOTE GIVEN PO. PT TOLERATED WELL. BS 102. NO INSULIN COVERAGE NEEDED. Addendum: 03/17/18 at 2243 by Tim Rodriguez RN NORCO GIVEN FOR 09/28 PAIN AT FX SITE.
[2018-03-17] MEDS ORDERED: DIVALPROEX 500 MG TABER PO SCH (21:00)
[2018-03-17] MEDS ORDERED: NON-FORMULARY ITEM (Atorvastatin Calcium 20 MG) PO SCH (21:00)
--- NOTE | 2018-03-17 22:38 | NUR ---
MORPHINE GIVEN FOR 10/10 PAIN. PT TOLERATED WELL.
[2018-03-18] VITALS: BP 119/62
[2018-03-18] MEDS: HYDROcodone/APAP 10/325 MG 1 TAB TAB PO PRN ×4 (01:13→18:08)
--- NOTE | 2018-03-18 01:13 | NUR ---
NORCO GIVEN FOR 6/10 PAIN. PT TOLERATED WELL.
[2018-03-18] MEDS: MORPHINE SULFATE 2 MG/ML SYR IVP PRN ×2 (02:32→06:25)
--- NOTE | 2018-03-18 02:32 | NUR ---
MORPHINE GIVEN FOR 10/10 PAIN. PT TOLERATED WELL.
[2018-03-18] MEDS: NACL 0.9% 1,000 ML IV SCH ×3 (02:38→17:28)
[2018-03-18 04:00] VITALS: BP 106/61
--- NOTE | 2018-03-18 04:30 | NUR ---
PT SLEEPING COMFORTABLY IN BED. NO S/S OF DISTRESS NOTED. RESPIRATIONS EVEN, UNLABORED, AND WNL. NO COMPLAINTS OF PAIN. NO SOB. AFEBRILE. WILL CONTINUE TO MONITOR.
--- NOTE | 2018-03-18 05:04 | NUR ---
NORCO GIVEN FOR 6/10 PAIN. PT TOLERATED WELL.
[2018-03-18] MEDS: BLOOD GLUCOSE MONITORING 1 DEV DEV FS SCH ×4 (05:51→20:09)
--- NOTE | 2018-03-18 05:51 | NUR ---
BS 109. NO INSULIN COVERAGE NEEDED.
[2018-03-18 06:25] LABS: T4 (THYROXINE) 11.3 ug/dL (4.5-12.0)
--- NOTE | 2018-03-18 06:25 | NUR ---
MORPHINE GIVEN FOR 10/10 ANKLE PAIN. PT TOLERATED WELL.
[2018-03-18 07:05] LABS: BASOPHILS % (AUTO) 0.6 % (0.0-2.0); EOSINOPHILS # (AUTO) 0.1 K/uL (0-0.4); EOSINOPHILS % (AUTO) 1.2 % (0.0-4.0); HEMATOCRIT 34.5 % (36-48); HEMOGLOBIN 11.5 g/dL (12.0-16.0); LYMPHOCYTES % (AUTO) 30.5 % (20.5-51.1); MEAN CORPUSCULAR HEMOGLOBIN 29 pg (27-31); MEAN CORPUSCULAR HGB CONC 33 g/dL (33-37); MEAN CORPUSCULAR VOLUME 87.7 fL (80-94); MONOCYTES # (AUTO) 1.1 K/uL (0.8-1.0); MONOCYTES % (AUTO) 16.6 % (1.7-9.3); NEUTROPHILS # (AUTO) 3.3 K/uL (1.8-7.7); NEUTROPHILS % (AUTO) 51.1 % (42.2-75.2); PLATELET COUNT (AUTO) 143 K/uL (140-450); RED BLOOD CELL COUNT(AUTO) 3.94 MIL/uL (4.20-5.40); RED CELL DISTRIBUTION WIDTH 15.6 % (11.6-13.7); WHITE BLOOD COUNT (AUTO) 6.5 K/uL (4.8-10.8)
--- NOTE | 2018-03-18 07:20 | NUR ---
REPORT GIVEN TO AM NURSE AT BEDSIDE. PT IN STABLE CONDITION.
--- NOTE | 2018-03-18 07:25 | NUR ---
RECEIVED PT FROM CABLE CUTTER AND SWAGER NURSEATILIO, PT IS AWAKE AND LYING ON THE BED WITH SIDE RAILS UP AND CALL LIGHT WITHIN REACH, SAFETY AND FALL PRECAUTION ENFORCED, BED IN LOW POSITION, PT HAS AN IV LINE ON THE LEFT AC G. 20 WITH NS AT 100ML/HR, INTACT, PT WAS PLACED ON CONTACT ISOLATION FOR HX OF MRSA. PT HAS A LEFT LOWER LEG BANDAGE DUE TO LEFT ANKLE FRACTURE, PT IS ON S/P FALL AT HOME PER PT'S VERBALIZATION, PT HAS ABRASIONS ON THE LEFT SIDE OF FOREHEAD AND FINGER. PT REFUSED TO WEAR A YELLOW GOWN FOR THE FALL PROTOCOL. NO SIGN OF DISTRESS NOTED AND WILL CONTINUE TO MONITOR.
[2018-03-18 08:00] VITALS: BP 112/58
[2018-03-18] MEDS ORDERED: CALCIUM ACETATE 667 MG TAB PO SCH (08:00)
[2018-03-18 08:21] LABS: ANION GAP 11.5 (8-16); CARBON DIOXIDE 29.3 mmol/L (21-32); CREATININE 0.7 mg/dL (0.6-1.3); POTASSIUM 3.8 mmol/L (3.5-5.1)
[2018-03-18 08:22] LABS: MAGNESIUM 1.7 mg/dL (1.8-2.4); PHOSPHORUS 4.5 mg/dL (2.5-4.9)
--- NOTE | 2018-03-18 08:42 | NUR ---
PATIENT HAS BEEN SCREENED AND CATEGORIZED MODERATE NUTRITION RISK. PATIENT WILL BE SEEN WITHIN 3-5 DAYS OF ADMISSION. 03/19/18 03/21/[address]
[2018-03-18] MEDS ORDERED: MORPHINE SULFATE 2 MG/ML SYR IVP PRN (08:50)
[2018-03-18] MEDS: ASCORBIC ACID 500 MG TAB PO SCH (08:56)
[2018-03-18] MEDS: DIVALPROEX 500 MG TABEC PO SCH ×2 (08:56→20:04)
[2018-03-18] MEDS: FERROUS SULFATE 325 MG TABEC PO SCH ×2 (08:56→16:49)
[2018-03-18] MEDS ORDERED: MAGNESIUM OXIDE 400 MG TAB PO SCH (09:00)
--- NOTE | 2018-03-18 09:00 | NUR ---
PT IS AWAKE AND ORAL MEDICATIONS GIVEN AND PT TOLERATED IT, PT WAS CLEANED AND MADE COMFORTABLE, REPOSITIONED, WILL CONTINUE TO MONITOR PT.
[2018-03-18] MEDS ORDERED: MAGNESIUM OXIDE 400 MG TAB PO ONE (09:10)
--- NOTE | 2018-03-18 10:00 | NUR ---
ACKNOWLEDGED AN ORDER FOR TRANSFER FOR THE PT TO [facility], HEART MONITOR WAS REMOVED AND GIVEN TO GLENNY ROMERO.
[2018-03-18] MEDS: MORPHINE SULFATE 4 MG/ML SYR IVP PRN ×4 (10:45→23:18)
[2018-03-18 13:30] LABS: BARBITURATE, URINE NEGATIVE ng/ml (NEG <=200); BENZODIAZEPINE, URINE NEGATIVE ng/mL (NEG <=200); CANNABINOID, URINE NEGATIVE ng/mL (NEG <=50); COCAINE, URINE NEGATIVE ng/mL (NEG <=300); OPIATE, URINE POSITIVE ng/mL (NEG <=2000); PHENCYCLIDINE SCREEN,URINE NEGATIVE ng/mL (NEG <=25)
--- NOTE | 2018-03-18 13:31 | NUR ---
ASSISTED DR. HARRY IN PLACING THE CAST TO THE PT, DR. HARRY SAID THAT HE WILL ORDER A PT EVALUATION AND TRAPEZE FOR HE PT.
[2018-03-18 13:37] LABS: APPEARANCE,URINE CLEAR (CLEAR); BILIRUBIN,URINE NEGATIVE (NEGATIVE); BLOOD, URINE TRACE-L (NEGATIVE); COLOR,URINE YELLOW (YELLOW); LEUKOCYTE ESTERASE ,URINE NEGATIVE (NEGATIVE); NITRITE, URINE NEGATIVE (NEGATIVE); UGLUCOSE NEGATIVE (NEGATIVE)
--- NOTE | 2018-03-18 13:45 | NUR ---
INFORMED PT, KAROL OF THE TRAPEZE ORDER FOR THE PT AND A PT EVALUATION, KAROL SAID THAT THEY WILL EVALUATE THE PT TOMORROW.
[2018-03-18 13:56] LABS: RBC,URINE 3-10 (FEW) /HPF (0-5); WBC,URINE 0-5 (RARE) /HPF (0-5)
[2018-03-18 13:59] LABS: OTHER CRYSTALS,URINE CHOLESTEROL 1+ /HPF (None Seen)
[2018-03-18 16:00] VITALS: BP 113/57
--- NOTE | 2018-03-18 16:30 | NUR ---
PT IS AWAKE AND ASSISTED WITH THE BEDPAN, THEN VITAL SIGNS TAKEN AND IS WITHIN NORMAL LIMITS, BLOOD GLUCOSE CHECK DONE AND RESULT IS 104 AND NO INSULIN COVERAGE NEEDED. WILL CONTINUE TO MONITOR PT.
--- NOTE | 2018-03-18 16:58 | NUR ---
Video Systems Engineer Note: Per Pilar from [facility] , patient is on a 7 day bed hold and is one of their short term patients. Pilar stated patient is self responsible.
--- NOTE | 2018-03-18 18:20 | NUR ---
PT VERBALIZED FEELING NAUSEATED AND ASKED FOR A ZOFRAN, MEDICATION GIVEN AND PT TOLERATED IT. WILL MONITOR PT.
--- NOTE | 2018-03-18 19:08 | NUR ---
ENDORSED PT TO HEAD GIRLS GOLF COACH NURSEATILIO FOR CONTINUITY OF CARE, PT IS STABLE AT THIS TIME.
--- NOTE | 2018-03-18 19:09 | NUR ---
REPORT RECEIVED FROM AM NURSE AT BEDSIDE. PT IN STABLE CONDITION. AAOX4. INTRODUCED SELF TO PT. BOARD UPDATED. PT HAS COMPLAINTS OF 8/10 ANKLE PAIN. WILL MEDICATE. IV SITE L AC 20G RUNNING NS@100ML/HR PATENT AND INTACT. SKIN WARM, DRY, AND NOT INTACT DUE TO ABRASIONS ON THE FOREHEAD AND LEFT FINGER. PT HAS TRAPEZE SET BY PT EARLIER TODAY. BED LOCKED IN LOW POSITION. CALL RODAS WITHIN REACH. SAFETY PRECAUTIONS IN PLACE.
--- NOTE | 2018-03-18 19:33 | NUR ---
MORPHINE GIVEN FOR 8/10 ANKLE PAIN. PT TOLERATED WELL.
[2018-03-18] MEDS: ATORVASTATIN 20 MG TAB PO SCH (20:04)
--- NOTE | 2018-03-18 20:04 | NUR ---
DEPAKOTE AND LIPITOR GIVEN PO. HEPARIN GIVEN SUBQ. PT TOLERATED WELL. BS 114. NO INSULIN COVERAGE REQUIRED.
--- NOTE | 2018-03-18 23:18 | NUR ---
MORPHINE GIVEN FOR 8/10 ANKLE PAIN. PT TOLERATED WELL.
[2018-03-19] VITALS: BP 110/58
--- NOTE | 2018-03-19 00:45 | NUR ---
PT SLEEPING COMFORTABLY IN BED BUT IS AROUSEABLE. NO S/S OF DISTRESS NOTED. NO COMPLAINTS OF PAIN. NO SOB. WILL CONTINUE TO MONITOR.
--- NOTE | 2018-03-19 02:20 | NUR ---
PT SLEEPING COMFORTABLY IN BED BUT AROUSEABLE. NO S/S OF DISTRESS NOTED. NO COMPLAINTS OF PAIN. NO SOB. AFEBRILE. WILL CONTINUE TO MONITOR.
[2018-03-19] MEDS: MORPHINE SULFATE 4 MG/ML SYR IVP PRN ×3 (03:42→13:01)
--- NOTE | 2018-03-19 03:42 | NUR ---
MORPHINE GIVEN FOR 8/10 ANKLE PAIN. PT TOLERATED WELL.
[2018-03-19] MEDS: HYDROcodone/APAP 10/325 MG 1 TAB TAB PO PRN ×3 (06:08→21:36)
--- NOTE | 2018-03-19 06:08 | NUR ---
NORCO GIVEN FOR 6/10 ANKLE PAIN. PT TOLERATED WELL.
[2018-03-19] MEDS: BLOOD GLUCOSE MONITORING 1 DEV DEV FS SCH ×4 (06:11→21:00)
--- NOTE | 2018-03-19 06:11 | NUR ---
BS 94. NO INSULIN COVERAGE NEEDED.
--- NOTE | 2018-03-19 07:05 | NUR ---
REPORT GIVEN TO AM NURSE AT BEDSIDE. PT IN STABLE CONDITION.
--- NOTE | 2018-03-19 07:06 | NUR ---
RECEIVED REPORT FROM SPORTS PHOTOGRAPHER NURSE. PATIENT LYING DOWN IN BED SLEEPING, AROUSABLE BY VOICE. NO DISTRESS NOTED. COMPLAINS OF PAIN, WILL MEDICATE PER MD ORDERS. AAOX4, CALM, COOPERATIVE, SKIN COLOR APPROPRIATE TO ETHNICITY, WARM TO TOUCH. HAS LEFT LE CAST NOTED PLACED BY DR. HARRY YESTERDAY. LEFT FOREHEAD AND LEFT EAR ABRASION NOTED THAT IS MORE. ABDOMEN SOFT, NON-DISTENDED. IV SITE INTACT, PATENT, AND INFUSING IVF PER MD ORDERS. REVIEWED PLAN OF CARE WITH PATIENT. PATIENT VERBALIZED UNDERSTANDING. SAFETY MEASURES IN PLACE, CALL LIGHT WITHIN REACH. WILL CONTINUE TO MONITOR.
[2018-03-19 07:44] LABS: BASOPHILS % (AUTO) 0.3 % (0.0-2.0); EOSINOPHILS # (AUTO) 0.1 K/uL (0-0.4); EOSINOPHILS % (AUTO) 1.9 % (0.0-4.0); HEMATOCRIT 34.7 % (36-48); HEMOGLOBIN 11.5 g/dL (12.0-16.0); LYMPHOCYTES # (AUTO) 2.2 K/uL (2.5-16.5); LYMPHOCYTES % (AUTO) 37.8 % (20.5-51.1); MEAN CORPUSCULAR HEMOGLOBIN 29 pg (27-31); MEAN CORPUSCULAR HGB CONC 33 g/dL (33-37); MONOCYTES # (AUTO) 0.9 K/uL (0.8-1.0); MONOCYTES % (AUTO) 15.3 % (1.7-9.3); NEUTROPHILS # (AUTO) 2.6 K/uL (1.8-7.7); NEUTROPHILS % (AUTO) 44.7 % (42.2-75.2); PLATELET COUNT (AUTO) 147 K/uL (140-450); RED BLOOD CELL COUNT(AUTO) 3.94 MIL/uL (4.20-5.40); RED CELL DISTRIBUTION WIDTH 15.1 % (11.6-13.7); WHITE BLOOD COUNT (AUTO) 5.8 K/uL (4.8-10.8)
[2018-03-19 07:45] LABS: MAGNESIUM 1.7 mg/dL (1.8-2.4); PHOSPHORUS 4.4 mg/dL (2.5-4.9)
[2018-03-19 07:46] LABS: ANION GAP 10.3 (8-16); CARBON DIOXIDE 29.9 mmol/L (21-32); CREATININE 0.6 mg/dL (0.6-1.3); POTASSIUM 4.2 mmol/L (3.5-5.1)
[2018-03-19 08:00] VITALS: BP 103/55
[2018-03-19] MEDS ORDERED: MAGNESIUM OXIDE 400 MG TAB PO SCH (08:30)
[2018-03-19] MEDS: DIVALPROEX 500 MG TABEC PO SCH ×2 (09:00→20:56)
[2018-03-19] MEDS: FERROUS SULFATE 325 MG TABEC PO SCH ×2 (09:00→17:32)
[2018-03-19] MEDS: ASCORBIC ACID 500 MG TAB PO SCH (09:00)
[2018-03-19] MEDS: NEOMYCIN/POLYMYXIN/BACITRACIN OIN 15 GM TUBE TP SCH (09:01)
--- NOTE | 2018-03-19 09:08 | NUR ---
CM NOTE MERLYN KO REQUESTED TO GET THE AUTHORIZATION FOR THE TRANSPORT AND SNF FROM [facility]. PER MARIA DE JESUS ARBOLEDA PH# [phone] EXT [phone], MARIA DE JESUS WILL ONLY START GENERATING THE AUTHORIZATIONS WHEN THERE IS AN ACTUAL DISCHARGE ORDER.
--- NOTE | 2018-03-19 09:10 | NUR ---
PATIENT LYING DOWN IN BED. NO DISTRESS NOTED. SCHEDULED MEDICATIONS DUE GIVEN. WILL CONTINUE TO MONITOR.
[2018-03-19] MEDS: NACL 0.9% 1,000 ML IV SCH ×3 (10:38→23:49)
--- NOTE | 2018-03-19 10:40 | NUR ---
PATIENT BACK TO BED FROM WORKING WITH PT. COMPLAINS OF PAIN, NORCO GIVEN PER ORDERS. WILL CONTINUE TO MONITOR.
--- NOTE | 2018-03-19 13:00 | NUR ---
PATIENT SITTING IN BED DOING WORDSEARCH ON BOOK. NO DISTRESS NOTED. PAIN WITHIN TOLERABLE. WILL CONTINUE TO MONITOR.
--- NOTE | 2018-03-19 15:30 | NUR ---
PATIENT SITTING IN BED WATCHING TV. CONDITION UNCHANGED. PAIN WITHIN TOLERABLE. WILL CONTINUE TO MONITOR.
[2018-03-19] MEDS ORDERED: MORPHINE SULFATE 4 MG/ML SYR IVP PRN (15:55)
[2018-03-19 16:00] VITALS: BP 103/55
--- NOTE | 2018-03-19 17:39 | NUR ---
PATIENT SITTING IN BED WITH COMPLAINTS OF PAIN. MORPHINE GIVEN PER ORDERS. OTHER SCHEDULED MEDICATIONS DUE GIVEN. WILL CONTINUE TO MONITOR.
--- NOTE | 2018-03-19 19:27 | NUR ---
GAVE REPORT TO TALENT ACQUISITION PROGRAM MANAGER NURSE FOR CONTINUITY OF CARE. PATIENT IN STABLE CONDITION.
--- NOTE | 2018-03-19 19:28 | NUR ---
RECEIVED REPORT FROM DAY SHIFT RN RYAN FOR CONTINUITY OF CARE. PT IS A/OX4, ON ROOM AIR. PT IS UNABLE TO AMBULATE AT THE MOMENT, AND SKIN IS WARM AND DRY WITH ABRASION TO LEFT SIDE OF FOREHEAD AND LEFT PINKY FINGER. PT IS ABLE TO MAKE NEEDS KNOWN, AND ABLE TO FOLLOW COMMANDS. LUNGS SOUNDS CLEAR, HR EVEN AND REGULAR. PT HAS 20G IV TO LEFT AC, ASYMPTOMATIC AND INTACT. PT DENIES ANY PAIN AT THIS TIME. VITAL SIGNS STABLE. NO SIGNS OF DISTRESS NOTED. PT POSITIONED FOR COMFORT. BED RAILS UP X2, BED IN LOWEST POSITION. CALL LIGHT WITHIN REACH. WILL CONTINUE TO MONITOR.
[2018-03-19] MEDS: ATORVASTATIN 20 MG TAB PO SCH (20:56)
--- NOTE | 2018-03-19 21:00 | NUR ---
ADMINISTERED SCHEDULED MEDICATIONS, PT TOLERATED WELL.
--- NOTE | 2018-03-19 21:36 | NUR ---
PT COMPLAINED OF PAIN AT 6/10 TO LEFT ANKLE. ADMINISTERED NORCO ORDERED, PT TOLERATED WELL.
[2018-03-20] VITALS: BP 111/68
--- NOTE | 2018-03-20 | NUR ---
PT DENIES ANY PAIN AT THIS TIME. VITAL SIGNS STABLE. NO SIGNS OF DISTRESS NOTED. PT POSITIONED FOR COMFORT. BED RAILS UP X2, BED IN LOWEST POSITION. CALL LIGHT WITHIN REACH. WILL CONTINUE TO MONITOR.
--- NOTE | 2018-03-20 02:05 | NUR ---
CALLED DR CHOU TO SPEAK ABOUT PT. PT WANTS MORPHINE IV INJECTION BECAUSE SHE IS IN 10/10 PAIN TO HER LEFT ANKLE. PT REFUSES TO TAKE MORPHINE TAB OR NORCO, AND MORPHINE IVP HAS BEEN DC. SAID SHE WOULD ORDER A ONE TIME ORDER OF MORPHINE IVP.
--- NOTE | 2018-03-20 02:39 | NUR ---
ADVISED PT THAT DR HAS NOT YET PUT IN ORDER AND THAT DR IS IN ICU DEALING WITH SOMETHING, AND I DO NOT KNOW WHEN SHE WILL BE ABLE TO PUT IN ORDER. ASKED HER IF SHE WOULD LIKE TO TAKE THE MORPHINE PILL IN THE MEANTIME, PT SAID "NO I'LL WAIT FOR MY PAIN SHOT."
--- NOTE | 2018-03-20 02:51 | NUR ---
ENDORSED PT TO HANG HENDRIX.
--- NOTE | 2018-03-20 02:52 | NUR ---
RECEIVED PT FROM VOLODYMYR RN PT IS AAOX4 ON BED REST S/P FRACTURE OF LEFT ANKLE ON TRAPEZE , CAST ON LEFT ANKLE INITIAL ASSESSMENT DONE
[2018-03-20] MEDS ORDERED: MORPHINE SULFATE 4 MG/ML SYR IVP SCH (03:30)
--- NOTE | 2018-03-20 04:20 | NUR ---
AFTER PAIN MEDIC GIVEN PT IS SLEEPING QUIET NOT DISTRESS NOTED
--- NOTE | 2018-03-20 06:30 | NUR ---
AFTER PAIN MEDIC GIVEN PT REMAIN QUIET WITH NOT PAIN, BLOOD SUGAR TEST 92
[2018-03-20] MEDS: BLOOD GLUCOSE MONITORING 1 DEV DEV FS SCH ×3 (06:38→17:04)
[2018-03-20] MEDS: NACL 0.9% 1,000 ML IV SCH (06:39)
[2018-03-20 07:22] LABS: BASOPHILS % (AUTO) 0.3 % (0.0-2.0); EOSINOPHILS # (AUTO) 0.1 K/uL (0-0.4); EOSINOPHILS % (AUTO) 1.9 % (0.0-4.0); HEMATOCRIT 33.7 % (36-48); HEMOGLOBIN 11.5 g/dL (12.0-16.0); LYMPHOCYTES # (AUTO) 1.9 K/uL (2.5-16.5); LYMPHOCYTES % (AUTO) 34.7 % (20.5-51.1); MEAN CORPUSCULAR HEMOGLOBIN 30 pg (27-31); MEAN CORPUSCULAR HGB CONC 34 g/dL (33-37); MONOCYTES # (AUTO) 0.7 K/uL (0.8-1.0); MONOCYTES % (AUTO) 13.9 % (1.7-9.3); NEUTROPHILS # (AUTO) 2.6 K/uL (1.8-7.7); NEUTROPHILS % (AUTO) 49.2 % (42.2-75.2); PLATELET COUNT (AUTO) 143 K/uL (140-450); RED BLOOD CELL COUNT(AUTO) 3.83 MIL/uL (4.20-5.40); RED CELL DISTRIBUTION WIDTH 14.7 % (11.6-13.7); WHITE BLOOD COUNT (AUTO) 5.3 K/uL (4.8-10.8)
--- NOTE | 2018-03-20 07:30 | NUR ---
RECEIVED BEDSIDE REPORT FROM CORRECTIONS LIEUTENANT NURSE. PATIENT IS AAOX4. IV ON L AC 20G RUNNING NS AT 80. L CAST CLEAN AND DRY. CONTACT ISOLATION IN PLACE AND FALL RISK PROTOCOL.
[2018-03-20 07:38] LABS: ANION GAP 11.6 (8-16); CARBON DIOXIDE 28.2 mmol/L (21-32); CREATININE 0.6 mg/dL (0.6-1.3); POTASSIUM 3.8 mmol/L (3.5-5.1)
[2018-03-20 08:00] VITALS: BP 128/56
[2018-03-20] MEDS ORDERED: MSCON15 PO (08:37)
[2018-03-20] MEDS ORDERED: MORPHINE TAB ER 15 MG TABER PO PRN (09:00)
[2018-03-20] MEDS: FERROUS SULFATE 325 MG TABEC PO SCH ×2 (09:11→17:01)
[2018-03-20] MEDS: DIVALPROEX 500 MG TABEC PO SCH (09:12)
[2018-03-20] MEDS: ASCORBIC ACID 500 MG TAB PO SCH (09:12)
[2018-03-20] MEDS: NEOMYCIN/POLYMYXIN/BACITRACIN OIN 15 GM TUBE TP SCH (09:16)
--- NOTE | 2018-03-20 09:22 | NUR ---
ADMINISTERED SCHEDULED MEDS TO PATIENT. PATIENT SITTING ON RECLINING CHAIR WITH LEGS ELEVATED. PATIENT TOLERATED WELL. WILL CONTINUE TO MONITOR.
--- NOTE | 2018-03-20 12:09 | NUR ---
Scrap Sawyer Note: I faxed patient's medical information to [facility].
--- NOTE | 2018-03-20 13:17 | NUR ---
Cook Candy Note: Per Pilar from [facility] , patient may return to room 19C at their facility, accepting physician is , Examination Scorer Aranza palmer and will arrange transportation for patient to return to [facility].
--- NOTE | 2018-03-20 13:30 | NUR ---
DISCHARGE INSTRUCTIONS GIVEN TO PATIENT IN PREFERRED LANGUAGE OF TURKS AND [place]ER. EDUCATED PATIENT ON MEDICATIONS, APPOINTMENT TIME, AND ANKLE AND CAST CARE. UPDATED PATIENT'S EMERGENCY CONTACT INFO. ANSWERED ALL PATIENTS QUESTIONS REGARDING TRANSFER. PATIENT VERBALIZED COMPLETE UNDERSTANDING. AWAITING FOR TRANSPORT TIME. WILL CONTINUE TO MONITOR.
--- NOTE | 2018-03-20 14:39 | NUR ---
SPOKE WITH CONTRERAS AT [facility] TODAY [phone] X [phone]. THE AUTH FOR [facility] IS [id number], I CALLED JHONNY FROM [facility] AND INFORMED HER. CALLED , AUTH [id number] AND SET UP [facility] FOR 7P.Wade HURTADO RN AWARE.
--- NOTE | 2018-03-20 15:26 | NUR ---
CALLED [facility] AND GAVE REPORT TO HANG REED REGARDING PATIENT'S TRANSFER LATER TODAY. ANSWERED ALL OF RN'S QUESTIONS. NOTIFIED RN OF CORE ANALYSIS OPERATOR TIME AT 1900 BY [facility]. RN VERBALIZED UNDERSTANDING. FACILITY AWAITING FOR PATIENT'S ARRIVAL.
[2018-03-20] MEDS: HYDROcodone/APAP 10/325 MG 1 TAB TAB PO PRN (15:58)
[2018-03-20 16:02] VITALS: BP 111/54
--- NOTE | 2018-03-20 16:30 | NUR ---
PATIENT REFUSED GLUCOSE CHECK AT THIS TIME.
--- NOTE | 2018-03-20 17:02 | NUR ---
ADMINISTERED SCHEDULED MEDS TO PATIENT. PATIENT TOLERATED WELL. WILL CONTINUE TO MONITOR.
--- NOTE | 2018-03-20 19:35 | NUR ---
ENDORSED PATIENT TO CHALK MOLDING MACHINE OPERATOR NURSE. PATIENT IN STABLE CONDITION.
== END 2018-03-20 19:30 | DRG 342 ==
LOC: MED 05:45 → MTU 10:38
PROVIDERS: ADMIT General Practice; ATTEND General Practice
PROC: 2W3TX1Z Immobilization of Left Foot using Splint (ICD-10-PCS; principal; 2018-03-17)
PROC: 2W3TX2Z Immobilization of Left Foot using Cast (ICD-10-PCS; 2018-03-18)
DX: S82.852A Displaced trimalleolar fracture of left lower leg, initial encounter for closed fracture (principal); E83.39 Other disorders of phosphorus metabolism; E83.42 Hypomagnesemia; E78.5 Hyperlipidemia, unspecified; D64.9 Anemia, unspecified; E11.9 Type 2 diabetes mellitus without complications; M79.7 Fibromyalgia; G89.29 Other chronic pain; M06.9 Rheumatoid arthritis, unspecified; F17.210 Nicotine dependence, cigarettes, uncomplicated; W01.0XXA Fall on same level from slipping, tripping and stumbling without subsequent striking against object, initial encounter; Y93.01 Activity, walking, marching and hiking; I10 Essential (primary) hypertension; Z88.2 Allergy status to sulfonamides; Z79.899 Other long term (current) drug therapy; Z79.4 Long term (current) use of insulin; Y92.89 Other specified places as the place of occurrence of the external cause; Y99.8 Other external cause status; Z86.14 Personal history of Methicillin resistant Staphylococcus aureus infection; Z98.1 Arthrodesis status; Z91.19 Patient's noncompliance with other medical treatment and regimen
CPT/HCPCS: 36415; 70450; 71045; 72125; 72170; 73590; 73610; 80048; 80053; 80305; 81001; 82150; 82948; 83036; 83690; 83735; 83880; 84100; 84436; 84443; 84484; 85025; 85610; 85730; 87081; 93005; 96374; 96375; 96376; 97110; 97116; 97530; 99285; J1644; J1815; J2270; J2405; J3010; J7030; Q0092

== ENCOUNTER 2019-05-31 08:53 | Emergency (ER) | payer OTHER ==
[~2019-05-31] VITALS: Ht 177.8 cm; Wt 82.6 kg
[~2019-05-31 08:53] MED LIST changes: +ACET-2619 PO; +ASCO500T45 PO; +ATA25 PO; +CARI350T PO; +CLON0.1T42 PO; +DIVA-58 PO; +DOCU-299 PO; -HEPA500056 SUBQ; +HYDR-5122 PO; +LOV40I SUBQ; +MSCON15 PO; +MULT-2253 PO; +NUTR30LI7 PO; -PIPE1SOL IV; +SENN-72 PO; +SLIDE SUBQ; +ZOLP5TAB1 PO; -[UNRECOGNIZED DRUG - CODE] IV
[2019-05-31 09:00] VITALS: BP 138/71
--- NOTE | 2019-05-31 09:05 | NUR ---
Patient ambulated to bed 12. RN evaluating patient at bedside.
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
[2019-05-31 09:53] LABS: BASOPHILS % (AUTO) 0.4 % (0.0-2.0); EOSINOPHILS # (AUTO) 0.1 K/uL (0-0.4); EOSINOPHILS % (AUTO) 1.3 % (0.0-4.0); HEMATOCRIT 39.9 % (36-48); HEMOGLOBIN 13.1 g/dL (12.0-16.0); LYMPHOCYTES # (AUTO) 1.5 K/uL (2.5-16.5); MEAN CORPUSCULAR HEMOGLOBIN 30 pg (27-31); MEAN CORPUSCULAR HGB CONC 33 g/dL (33-37); MEAN CORPUSCULAR VOLUME 91.7 fL (80-94); MONOCYTES # (AUTO) 0.6 K/uL (0.8-1.0); MONOCYTES % (AUTO) 7.7 % (1.7-9.3); NEUTROPHILS # (AUTO) 5.1 K/uL (1.8-7.7); NEUTROPHILS % (AUTO) 69.6 % (42.2-75.2); PLATELET COUNT (AUTO) 216 K/uL (140-450); RED BLOOD CELL COUNT(AUTO) 4.35 MIL/uL (4.20-5.40); RED CELL DISTRIBUTION WIDTH 13.6 % (11.6-13.7); WHITE BLOOD COUNT (AUTO) 7.3 K/uL (4.8-10.8)
[2019-05-31 10:02] LABS: ANION GAP 13.1 (8-16); CARBON DIOXIDE 27.1 mmol/L (21-32); CREATININE 0.8 mg/dL (0.6-1.3); POTASSIUM 3.2 mmol/L (3.5-5.1)
[2019-05-31 10:40] VITALS: BP 138/71
== END 2019-05-31 10:41 | disposition home or self-care (01) ==
LOC: MED 08:53
DX: S09.90XA Unspecified injury of head, initial encounter (principal); E11.9 Type 2 diabetes mellitus without complications; Z79.4 Long term (current) use of insulin; Z79.899 Other long term (current) drug therapy; Z88.2 Allergy status to sulfonamides; W01.198A Fall on same level from slipping, tripping and stumbling with subsequent striking against other object, initial encounter; Y93.89 Activity, other specified; Y92.89 Other specified places as the place of occurrence of the external cause; Y99.8 Other external cause status
CPT/HCPCS: 36415; 70450; 80048; 82948; 85025; 99284

== ENCOUNTER 2021-02-15 21:52 | Emergency (ER) | payer OTHER ==
[~2021-02-15] VITALS: Ht 175.3 cm; Wt 75.7 kg
[2021-02-15 21:52] VITALS: BP 120/62
[~2021-02-15 21:52] MED LIST changes: -ASCO500T45 PO; +ASCO500T95 PO; +CLON0.1T16 PO; -CLON0.1T42 PO
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
--- NOTE | 2021-02-15 21:57 | NUR ---
PT TRANSFERRED FROM EMS [facility] TO ER BED 07 VIA EMS
--- NOTE | 2021-02-15 22:51 | NUR ---
GERALD SAWYER AT BEDSIDE FOR MEDICAL EXAMINATION
[2021-02-15] MEDS ORDERED: VANCOMYCIN 1,000 MG in DEXTROSE 5% 250 ML IV ONE (23:05)
[2021-02-15] MEDS ORDERED: KETOROLAC 30 MG/ML VIAL IVP ONE (23:05)
--- NOTE | 2021-02-15 23:08 | NUR ---
LAB AT BEDSIDE
--- NOTE | 2021-02-15 23:15 | NUR ---
LIDIA SWAB COLLECTED AND HANDED TO BAL FROM LAB
[2021-02-15] MEDS ORDERED: VANCOMYCIN 1,000 MG VIAL ONE (23:17)
[2021-02-15] MEDS ORDERED: cefTRIAXone 1,000 MG VIAL ONE (23:17)
[2021-02-15 23:20] LABS: BASOPHILS % (AUTO) 0.4 % (0.0-2.0); EOSINOPHILS # (AUTO) 0.1 K/uL (0-0.4); EOSINOPHILS % (AUTO) 1.2 % (0.0-4.0); HEMATOCRIT 29.1 % (36-48); HEMOGLOBIN 9.3 g/dL (12.0-16.0); LYMPHOCYTES # (AUTO) 1.2 K/uL (2.5-16.5); LYMPHOCYTES % (AUTO) 12.3 % (20.5-51.1); MEAN CORPUSCULAR HEMOGLOBIN 25 pg (27-31); MEAN CORPUSCULAR HGB CONC 32 g/dL (33-37); MEAN CORPUSCULAR VOLUME 79.1 fL (80-94); MONOCYTES % (AUTO) 11.1 % (1.7-9.3); PLATELET COUNT (AUTO) 335 K/uL (140-450); RED BLOOD CELL COUNT(AUTO) 3.68 MIL/uL (4.20-5.40); RED CELL DISTRIBUTION WIDTH 16.5 % (11.6-13.7); WHITE BLOOD COUNT (AUTO) 9.4 K/uL (4.8-10.8)
--- NOTE | 2021-02-15 23:25 | NUR ---
URINE SAMPLE COLLECTED, HANDED TO BAL FROM LAB
[2021-02-15 23:36] LABS: ALBUMIN 2.3 g/dL (3.4-5.0); CARBON DIOXIDE 27.1 mmol/L (21-32); CREATININE 0.9 mg/dL (0.6-1.3); POTASSIUM 3.1 mmol/L (3.5-5.1); TOTAL BILIRUBIN 0.3 mg/dL (0.0-1.0)
[2021-02-15 23:50] LABS: BARBITURATE, URINE NEGATIVE ng/ml (NEG <=200); BENZODIAZEPINE, URINE NEGATIVE ng/mL (NEG <=200)
[2021-02-15 23:51] LABS: CANNABINOID, URINE NEGATIVE ng/mL (NEG <=50); COCAINE, URINE NEGATIVE ng/mL (NEG <=300); OPIATE, URINE POSITIVE ng/mL (NEG <=2000); PHENCYCLIDINE SCREEN,URINE NEGATIVE ng/mL (NEG <=25)
[2021-02-16] MEDS ORDERED: BACITRACIN OINT 500 UNITS/GM PKT TP ONE ×2 (00:02→00:55)
--- NOTE | 2021-02-16 00:10 | NUR ---
DELAY IN MED ADMINISTRATION DUE TO UNSUCCESSFUL IV ATTEMPTS
--- NOTE | 2021-02-16 00:10 | NUR ---
CHANGED WOUND DRESSING ON RIGHT FOREARM. FLUSHED WITH SALINE AND PLACED WITH ABSORBANT PAD.
[2021-02-16] MEDS ORDERED: POTASSIUM CHLORIDE 10 MEQ TABER PO ONE (00:15)
--- NOTE | 2021-02-16 00:35 | NUR ---
PT. TAKEN TO CT VIA [facility]
--- NOTE | 2021-02-16 01:02 | NUR ---
PT. BACK FROM CT
--- NOTE | 2021-02-16 02:40 | NUR ---
PT. IN SUPINE POSITION WITH EYES CLOSED, VOICES NO COMPLAINTS AT THIS TIME. HR EVEN AND REGULAR, BREATHING UNLABORED.
[2021-02-16] MEDS ORDERED: CEPH-588 PO (02:58)
[2021-02-16] MEDS ORDERED: IBUP-2218 PO (02:58)
[2021-02-16 03:15] VITALS: BP 122/64
--- NOTE | 2021-02-16 03:15 | NUR ---
Patient discharged with v/s stable. Written and verbal after care instructions given and explained. Patient alert, oriented and verbalized understanding of instructions. Ambulatory with steady gait. All questions addressed prior to discharge. ID band removed. Patient advised to follow up with PMD. Rx of KEFLEX AND IBUPROFEN given. Patient educated on indication of medication including possible reaction and side effects. Opportunity to ask questions provided and answered.
== END 2021-02-16 03:15 | disposition home or self-care (01) ==
LOC: MED 21:52
DX: L03.113 Cellulitis of right upper limb (principal); Z20.822 Contact with and (suspected) exposure to COVID-19; E87.6 Hypokalemia; E11.9 Type 2 diabetes mellitus without complications; E78.5 Hyperlipidemia, unspecified; F11.90 Opioid use, unspecified, uncomplicated; Z88.2 Allergy status to sulfonamides; Z79.899 Other long term (current) drug therapy; Z79.4 Long term (current) use of insulin; Z59.00 Homelessness unspecified
CPT/HCPCS: 36415; 73201; 80053; 80305; 83605; 83880; 85025; 87040; 87426; 96365; 96366; 96368; 96375; 99285; G0482; J0696; J1885; J3370; Q9967

== ENCOUNTER 2021-03-24 04:18 | Emergency (ER) | payer OTHER ==
[~2021-03-24] VITALS: Ht 176.5 cm; Wt 75.7 kg
[~2021-03-24 04:18] MED LIST changes: +CEPH-588 PO; +IBUP-2218 PO
--- NOTE | 2021-03-24 04:19 | NUR ---
PT BROUGHT TO BED 3 VIA MEHDI GALLO
[2021-03-24 04:20] VITALS: BP 151/61
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
[2021-03-24] MEDS ORDERED: HYDROcodone/APAP 10/325 MG 1 TAB TAB PO STA (04:39)
--- NOTE | 2021-03-24 06:26 | NUR ---
pt appears to be sleeping. eyes are closed, opens to touch. equal rise and fall of chest wall. vss. pt is in stable condition. all needs met at this time. bed locked in lowest position, side rails x2.
--- NOTE | 2021-03-24 07:39 | NUR ---
report given to mary orellana. transfer of care at this time.
--- NOTE | 2021-03-24 07:44 | NUR ---
received report from asset management lead RN 55 years old female presents to er with ankle pain/swelling. will continue to monitor until d/c.
[2021-03-24] MEDS ORDERED: NAPR-54 PO (08:36)
--- NOTE | 2021-03-24 09:00 | NUR ---
PT IS STILL DROWSY, PT PROVIDED BREAKFAST TRAY. PT REPOSITIONED FOR COMFORT.
--- NOTE | 2021-03-24 10:35 | NUR ---
LAB AT BEDSIDE
[2021-03-24 10:59] LABS: ANION GAP 10.1 (8-16); CARBON DIOXIDE 28.4 mmol/L (21-32); CREATININE 0.8 mg/dL (0.6-1.3); POTASSIUM 3.5 mmol/L (3.5-5.1)
[2021-03-24 11:05] LABS: BASOPHILS % (AUTO) 0.4 % (0.0-2.0); EOSINOPHILS # (AUTO) 0.1 K/uL (0-0.4); EOSINOPHILS % (AUTO) 1.5 % (0.0-4.0); HEMATOCRIT 29.3 % (36-48); HEMOGLOBIN 9.6 g/dL (12.0-16.0); LYMPHOCYTES # (AUTO) 0.9 K/uL (2.5-16.5); MEAN CORPUSCULAR HEMOGLOBIN 25 pg (27-31); MEAN CORPUSCULAR HGB CONC 33 g/dL (33-37); MEAN CORPUSCULAR VOLUME 77.3 fL (80-94); MONOCYTES # (AUTO) 0.9 K/uL (0.8-1.0); MONOCYTES % (AUTO) 11.3 % (1.7-9.3); NEUTROPHILS # (AUTO) 5.8 K/uL (1.8-7.7); NEUTROPHILS % (AUTO) 74.8 % (42.2-75.2); PLATELET COUNT (AUTO) 314 K/uL (140-450); RED CELL DISTRIBUTION WIDTH 16.4 % (11.6-13.7); WHITE BLOOD COUNT (AUTO) 7.7 K/uL (4.8-10.8)
--- NOTE | 2021-03-24 12:01 | NUR ---
PT IS DISCHARGED, ATTEMPTED TO GET PT UP AND OUT OF BED TO WALK, PT REFUSING, DR METZGER MADE AWARE
--- NOTE | 2021-03-24 12:40 | NUR ---
ATTEMPTING TO GET PT OUT OF BED, PT THREATENING STAFF AND SWINGING. [place] [employer] CONTACTED.
--- NOTE | 2021-03-24 12:55 | NUR ---
[place] [employer] AT BEDSIDE
--- NOTE | 2021-03-24 13:03 | NUR ---
PATIENT ALERT, ORIENTED X4 AMBULATORY D/C WITH POLICE AFTER CARE INSTRUCTIONS GIVEN UNDERSTOOD REFUSED TO SIGN, FOOD GIVEN PRIOR TO DEPARTURE, CLOTHES INTACT.
[2021-03-24 13:05] VITALS: BP 140/70
== END 2021-03-24 13:03 | disposition home or self-care (01) ==
LOC: MED 04:18
DX: M79.672 Pain in left foot (principal); E11.9 Type 2 diabetes mellitus without complications; Z88.2 Allergy status to sulfonamides; Z79.4 Long term (current) use of insulin; Z79.899 Other long term (current) drug therapy
CPT/HCPCS: 36415; 73590; 73610; 73630; 80048; 85025; 93971; 99285; Q0092

== ENCOUNTER 2021-08-17 03:16 | Emergency (ER) | payer OTHER ==
[~2021-08-17] VITALS: Ht 162.6 cm; Wt 71.7 kg
[~2021-08-17 03:16] MED LIST changes: +NAPR-54 PO
[2021-08-17 03:18] VITALS: BP 158/88
[2021-08-17 06:12] VITALS: BP 158/88
== END 2021-08-17 06:12 | disposition left against medical advice (07) ==
LOC: MED 03:16
DX: M79.605 Pain in left leg (principal); Z53.21 Procedure and treatment not carried out due to patient leaving prior to being seen by health care provider
CPT/HCPCS: 99281

== ENCOUNTER 2023-08-28 23:10 | Emergency (ER) | payer MEDICAID, OTHER ==
[~2023-08-28] VITALS: Ht 165.1 cm; Wt 67.1 kg
[~2023-08-28 23:10] MED LIST changes: +NAPR-337 PO; -NAPR-54 PO
[2023-08-28 23:16] VITALS: PULSE 94; RESP 16; TEMP 97.3; O2SAT 99
[2023-08-29 01:11] LABS: FLU A ANTIGEN negative (NEGATIVE); FLU B ANTIGEN NEGATIVE (NEGATIVE)
[2023-08-29 01:34] LABS: BASOPHILS # (AUTO) 0.1 K/uL (0.00-0.22); BASOPHILS % (AUTO) 0.7 % (0.0-2.0); EOSINOPHILS # (AUTO) 0.2 K/uL (0-0.4); EOSINOPHILS % (AUTO) 1.8 % (0.0-4.0); HEMATOCRIT 30.7 % (36-48); LYMPHOCYTES # (AUTO) 2.5 K/uL (2.5-16.5); LYMPHOCYTES % (AUTO) 25.8 % (20.5-51.1); MEAN CORPUSCULAR HEMOGLOBIN 27 pg (27-31); MEAN CORPUSCULAR HGB CONC 33 g/dL (33-37); MEAN CORPUSCULAR VOLUME 82.9 fL (80-94); MONOCYTES # (AUTO) 0.8 K/uL (0.8-1.0); MONOCYTES % (AUTO) 7.9 % (1.7-9.3); NEUTROPHILS # (AUTO) 6.1 K/uL (1.8-7.7); NEUTROPHILS % (AUTO) 63.8 % (42.2-75.2); PLATELET COUNT (AUTO) 225 K/uL (140-450); RED BLOOD CELL COUNT(AUTO) 3.71 MIL/uL (4.20-5.40); RED CELL DISTRIBUTION WIDTH 20.4 % (11.6-13.7); WHITE BLOOD COUNT (AUTO) 9.6 K/uL (4.8-10.8)
[2023-08-29 01:50] LABS: ANION GAP 21.6 (8-16); CALCIUM 8.3 mg/dL (8.5-10.1); CARBON DIOXIDE 20.5 mmol/L (21-32)
[2023-08-29 01:57] LABS: CREATININE 13.7 mg/dL (0.6-1.3); POTASSIUM 6.1 mmol/L (3.5-5.1)
[2023-08-29] MEDS: SODIUM ZIRCONIUM CYCLOSILICATE 10 GM POWD.PACK PO ONE (02:46)
[2023-08-29] MEDS: DEXTROSE 50% 50 ML SYR IVP ONE (02:49)
[2023-08-29] MEDS: INSULIN REGULAR, HUMAN 100 UNIT/ML VIAL IV ONE (02:50)
[2023-08-29] MEDS ORDERED: ACETAMINOPHEN EXTRA STRENGTH 500 MG TAB PO PRN (02:50)
[2023-08-29] MEDS: CALCIUM GLUC 1 GM/50 mL NS BAG 50 ML IV ONE (02:56)
[2023-08-29] MEDS: MORPHINE SULFATE 4 MG/ML SYR IVP ONE (03:43)
[2023-08-29] MEDS ORDERED: ONDANSETRON 4 MG/2 ML VIAL ONE (04:09)
[2023-08-29] MEDS: ONDANSETRON 4 MG/2 ML VIAL IVP ONE (04:14)
[2023-08-29] MEDS ORDERED: CLONIDINE HYDROCHLORIDE 0.1 MG TAB PO PRN (06:25)
[2023-08-29] MEDS ORDERED: HYDROcodone/APAP 5/325 MG 1 TAB TAB PO PRN (06:25)
[2023-08-29] MEDS ORDERED: ALBUTEROL SULFATE/IPRATROPIU 3 ML SOL IH PRN (06:25)
[2023-08-29] MEDS ORDERED: SENNA 8.6 MG TAB PO PRN (06:25)
[2023-08-29] MEDS ORDERED: INSULIN LISPRO SLIDING SCALE 100 UNITS/ML VIAL SUBQ PRN (06:25)
[2023-08-29] MEDS ORDERED: HYDROXYZINE HYDROCHLORIDE 25 MG TAB PO PRN (06:25)
[2023-08-29] MEDS ORDERED: ZOLPIDEM 5 MG TAB PO PRN (06:25)
[2023-08-29] MEDS ORDERED: DEXTROSE 50% 50 ML SYR IVP PRN (06:25)
[2023-08-29 07:04] LABS: BASOPHILS # (AUTO) 0.1 K/uL (0.00-0.22); EOSINOPHILS # (AUTO) 0.1 K/uL (0-0.4); EOSINOPHILS % (AUTO) 1.8 % (0.0-4.0); HEMATOCRIT 28.6 % (36-48); HEMOGLOBIN 9.5 g/dL (12.0-16.0); LYMPHOCYTES # (AUTO) 1.6 K/uL (2.5-16.5); LYMPHOCYTES % (AUTO) 19.3 % (20.5-51.1); MEAN CORPUSCULAR HEMOGLOBIN 27 pg (27-31); MEAN CORPUSCULAR HGB CONC 33 g/dL (33-37); MONOCYTES # (AUTO) 0.7 K/uL (0.8-1.0); MONOCYTES % (AUTO) 9.2 % (1.7-9.3); NEUTROPHILS # (AUTO) 5.6 K/uL (1.8-7.7); NEUTROPHILS % (AUTO) 68.7 % (42.2-75.2); PLATELET COUNT (AUTO) 199 K/uL (140-450); RED BLOOD CELL COUNT(AUTO) 3.49 MIL/uL (4.20-5.40); RED CELL DISTRIBUTION WIDTH 20.1 % (11.6-13.7); WHITE BLOOD COUNT (AUTO) 8.1 K/uL (4.8-10.8)
[2023-08-29 07:30] LABS: ALBUMIN 3.4 g/dL (3.4-5.0); CALCIUM 8.1 mg/dL (8.5-10.1); CARBON DIOXIDE 18.9 mmol/L (21-32); MAGNESIUM 2.4 mg/dL (1.8-2.4); PHOSPHORUS 7.4 mg/dL (2.5-4.9); POTASSIUM 4.9 mmol/L (3.5-5.1); TOTAL BILIRUBIN 0.3 mg/dL (0.0-1.0); TOTAL PROTEIN, SERUM 7.5 g/dL (6.4-8.2)
[2023-08-29 07:33] LABS: CREATININE 14.2 mg/dL (0.6-1.3)
[2023-08-29] MEDS: BLOOD GLUCOSE MONITORING 1 DEV DEV FS SCH (07:51)
[2023-08-29] MEDS: FERROUS SULFATE 325 MG TABEC PO SCH (08:00)
[2023-08-29] MEDS: DIVALPROEX 500 MG TABEC PO SCH (09:00)
[2023-08-29] MEDS: DOCUSATE SODIUM 100 MG GELCAP PO SCH (09:00)
[2023-08-29] MEDS: ASCORBIC ACID 500 MG TAB PO SCH (09:16)
[2023-08-29 12:00] VITALS: BP 106/82; PULSE 86; RESP 18; TEMP 98.9; O2SAT 100
[2023-08-29 13:27] VITALS: PULSE 86; RESP 18; O2SAT 100
[2023-08-29] MEDS ORDERED: ATORVASTATIN 20 MG TAB PO SCH (21:00)
== END 2023-08-29 02:53 | disposition home or self-care (01) ==
LOC: MED 23:10 → MTU 08-29 02:53 → UNDOADMIN 08-29 02:53 → MTU 08-29 11:00 → UNDODISIN 08-29 15:15
DX: E87.5 Hyperkalemia (principal); I12.0 Hypertensive chronic kidney disease with stage 5 chronic kidney disease or end stage renal disease; E11.22 Type 2 diabetes mellitus with diabetic chronic kidney disease; N18.6 End stage renal disease; Z99.2 Dependence on renal dialysis; Z20.822 Contact with and (suspected) exposure to COVID-19; Z79.4 Long term (current) use of insulin; Z79.1 Long term (current) use of non-steroidal anti-inflammatories (NSAID); Z79.899 Other long term (current) drug therapy; Z59.00 Homelessness unspecified; Z88.2 Allergy status to sulfonamides
CPT/HCPCS: 36415; 71045; 80048; 80053; 82948; 83735; 84100; 85025; 87426; 87804; 93005; 96374; 96375; 99291; J0610; J1815; J2270; J2405

== ENCOUNTER 2023-11-27 02:50 | Emergency (ER) | payer MEDICAID ==
[~2023-11-27] VITALS: Ht 182.9 cm; Wt 86.2 kg
[~2023-11-27 02:50] MED LIST changes: -ATA25 PO; -CARI350T PO; -CEPH-588 PO; -CLON0.1T16 PO; -FER325 PO; -HYDR-5122 PO; -IBUP-2218 PO; -LACT10CA PO; -MSCON15 PO; -NAPR-337 PO; -NUTR30LI7 PO; -SENN-72 PO; -ZOLP5TAB1 PO
[2023-11-27 02:59] VITALS: BP 160/56; PULSE 65; RESP 16; TEMP 97.2; O2SAT 98
[2023-11-27 03:11] VITALS: BP 160/56; PULSE 64; RESP 16; TEMP 97.2; O2SAT 98
[2023-11-27 04:13] LABS: HEMATOCRIT 34.9 % (36-48); HEMOGLOBIN 8.1 g/dL (12.0-16.0); MEAN CORPUSCULAR HEMOGLOBIN 31 pg (27-31); MEAN CORPUSCULAR HGB CONC 33 g/dL (33-37); MEAN CORPUSCULAR VOLUME 93.8 fL (80-94); PLATELET COUNT (AUTO) 193 K/uL (140-450); RED BLOOD CELL COUNT(AUTO) 2.65 MIL/uL (4.20-5.40); RED CELL DISTRIBUTION WIDTH 14.8 % (11.6-13.7); WHITE BLOOD COUNT (AUTO) 8.4 K/uL (4.8-10.8)
[2023-11-27 04:14] LABS: BASOPHILS # (AUTO) 0.1 K/uL (0.00-0.22); BASOPHILS % (AUTO) 0.7 % (0.0-2.0); EOSINOPHILS # (AUTO) 0.4 K/uL (0-0.4); EOSINOPHILS % (AUTO) 4.4 % (0.0-4.0); LYMPHOCYTES # (AUTO) 1.9 K/uL (2.5-16.5); LYMPHOCYTES % (AUTO) 22.5 % (20.5-51.1); MONOCYTES # (AUTO) 0.9 K/uL (0.8-1.0); MONOCYTES % (AUTO) 10.4 % (1.7-9.3); NEUTROPHILS # (AUTO) 5.2 K/uL (1.8-7.7)
[2023-11-27 04:37] LABS: ANION GAP 19.8 (8-16); CALCIUM 7.5 mg/dL (8.5-10.1); CARBON DIOXIDE 20.8 mmol/L (21-32); POTASSIUM 4.6 mmol/L (3.5-5.1)
[2023-11-27 04:39] LABS: CREATININE 10.9 mg/dL (0.6-1.3)
[2023-11-27] MEDS: ACETAMINOPHEN EXTRA STRENGTH 500 MG TAB PO ONE (05:31)
== END 2023-11-27 05:52 | disposition home or self-care (01) ==
LOC: MED 02:50
DX: I12.0 Hypertensive chronic kidney disease with stage 5 chronic kidney disease or end stage renal disease (principal); E11.22 Type 2 diabetes mellitus with diabetic chronic kidney disease; N18.6 End stage renal disease; D64.9 Anemia, unspecified; R53.1 Weakness; M25.571 Pain in right ankle and joints of right foot; M19.90 Unspecified osteoarthritis, unspecified site; Z99.2 Dependence on renal dialysis; Z79.4 Long term (current) use of insulin; Z79.899 Other long term (current) drug therapy; Z88.2 Allergy status to sulfonamides
CPT/HCPCS: 36415; 80048; 83880; 84484; 85025; 93005; 99284

== ENCOUNTER 2024-01-17 04:45 | Inpatient (IN) | payer MEDICAID ==
[~2024-01-17] VITALS: Ht 175.3 cm; Wt 76.2 kg
[2024-01-17 04:46] VITALS: BP 185/114; PULSE 87; RESP 18; TEMP 98.2; O2SAT 98
[2024-01-17 05:06] VITALS: O2SAT 99
[2024-01-17] MEDS: ACETAMINOPHEN EXTRA STRENGTH 500 MG TAB PO ONE ×2 (05:39→07:02)
[2024-01-17 05:46] LABS: BASOPHILS # (AUTO) 0.1 K/uL (0.00-0.22); BASOPHILS % (AUTO) 1.1 % (0.0-2.0); EOSINOPHILS # (AUTO) 0.2 K/uL (0-0.4); EOSINOPHILS % (AUTO) 3.1 % (0.0-4.0); HEMATOCRIT 26.5 % (36-48); HEMOGLOBIN 8.6 g/dL (12.0-16.0); LYMPHOCYTES # (AUTO) 1.1 K/uL (2.5-16.5); LYMPHOCYTES % (AUTO) 18.1 % (20.5-51.1); MEAN CORPUSCULAR HEMOGLOBIN 29 pg (27-31); MEAN CORPUSCULAR HGB CONC 32 g/dL (33-37); MEAN CORPUSCULAR VOLUME 90.8 fL (80-94); MONOCYTES # (AUTO) 0.6 K/uL (0.8-1.0); NEUTROPHILS # (AUTO) 4.3 K/uL (1.8-7.7); NEUTROPHILS % (AUTO) 68.7 % (42.2-75.2); PLATELET COUNT (AUTO) 247 K/uL (140-450); RED BLOOD CELL COUNT(AUTO) 2.92 MIL/uL (4.20-5.40); RED CELL DISTRIBUTION WIDTH 15.3 % (11.6-13.7); WHITE BLOOD COUNT (AUTO) 6.3 K/uL (4.8-10.8)
[2024-01-17 06:04] LABS: ANION GAP 19.9 (8-16); CALCIUM 6.5 mg/dL (8.5-10.1); CARBON DIOXIDE 22.9 mmol/L (21-32); POTASSIUM 4.8 mmol/L (3.5-5.1)
[2024-01-17 06:06] LABS: CREATININE 12.1 mg/dL (0.6-1.3)
[2024-01-17] MEDS: CALCIUM GLUC 1 GM/50 mL NS BAG 50 ML IV ONE (06:30)
[2024-01-17] MEDS ORDERED: ZOLPIDEM 5 MG TAB PO PRN (07:45)
[2024-01-17] MEDS ORDERED: HYDROcodone/APAP 5/325 MG 1 TAB TAB PO PRN (07:45)
[2024-01-17] MEDS ORDERED: MAGNESIUM OXIDE 400 MG TAB PO PRN (07:45)
[2024-01-17] MEDS ORDERED: POTASSIUM CHLORIDE 10 MEQ TABER PO PRN (07:45)
[2024-01-17] MEDS ORDERED: ONDANSETRON 4 MG/2 ML VIAL IVP PRN (07:45)
[2024-01-17] MEDS ORDERED: ACETAMINOPHEN 325 MG TAB PO PRN (07:45)
[2024-01-17] MEDS ORDERED: DEXTROSE 50% 50 ML SYR IVP PRN (09:15)
[2024-01-17] MEDS ORDERED: INSULIN LISPRO SLIDING SCALE 100 UNITS/ML VIAL SUBQ PRN (09:15)
[2024-01-17 09:23] LABS: ALBUMIN 3.3 g/dL (3.4-5.0); BILIRUBIN,DIRECT 0.1 mg/dL (0.0-0.3); MAGNESIUM 2.3 mg/dL (1.8-2.4); PHOSPHORUS 7.4 mg/dL (2.5-4.9); TOTAL BILIRUBIN 0.4 mg/dL (0.0-1.0); TOTAL PROTEIN, SERUM 8.7 g/dL (6.4-8.2)
[2024-01-17] MEDS: BLOOD GLUCOSE MONITORING 1 DEV DEV FS SCH (12:40)
[2024-01-17] MEDS: DOCUSATE SODIUM 100 MG GELCAP PO SCH (12:41)
[2024-01-17] MEDS: OLANZapine 10 MG VIAL IM SCH (16:00)
[2024-01-17] MEDS: DIVALPROEX 500 MG TABEC PO SCH (21:00)
[2024-01-17] MEDS: ATORVASTATIN 20 MG TAB PO SCH (21:00)
[2024-01-17 21:45] VITALS: BP 140/79; PULSE 80; RESP 14; TEMP 98.1; O2SAT 99
[2024-01-17] MEDS ORDERED: OLANZapine 10 MG VIAL IM ONE (23:05)
[2024-01-18] MEDS ORDERED: ASCORBIC ACID 500 MG TAB PO SCH (09:00)
[2024-01-18] MEDS ORDERED: amLODIPine 5 MG TAB PO SCH (09:00)
[2024-01-18] MEDS ORDERED: VIT-B COMP/VIT-C/FOLIC ACID 1 TAB PO SCH (09:00)
== END 2024-01-18 06:25 | disposition left against medical advice (07) | DRG 351 ==
LOC: MED 04:45 → MMU 07:41 → MTU 18:54
PROVIDERS: ADMIT Student in an Organized Health Care Education/Training Program; ATTEND Student in an Organized Health Care Education/Training Program
DX: M79.7 Fibromyalgia (principal); I12.0 Hypertensive chronic kidney disease with stage 5 chronic kidney disease or end stage renal disease; E11.22 Type 2 diabetes mellitus with diabetic chronic kidney disease; D63.1 Anemia in chronic kidney disease; E83.51 Hypocalcemia; E83.39 Other disorders of phosphorus metabolism; N18.6 End stage renal disease; E78.5 Hyperlipidemia, unspecified; Z53.29 Procedure and treatment not carried out because of patient's decision for other reasons; Z88.2 Allergy status to sulfonamides; Z79.899 Other long term (current) drug therapy; Z99.2 Dependence on renal dialysis
CPT/HCPCS: 36415; 80048; 80076; 83735; 84100; 85025; J3490